=== PATIENT | female | born 1940 | race Caucasian/White ===

== ENCOUNTER 2017-06-13 09:51 | Outpatient (RCR) | payer MEDICARE, BC ==
[2016-01-10 16:52] VITALS: Ht 160 cm; Wt 68.9 kg
[2017-03-21 10:20] VITALS: BP 134/71
[2017-03-21 10:30] LABS: PLATELET COUNT, AUTOMATED 249 K/uL (150-450)
[2017-04-04 10:19] VITALS: BP 115/73
[2017-04-04 10:23] LABS: PLATELET COUNT, AUTOMATED 273 K/uL (150-450)
[2017-04-04 12:34] VITALS: BP 119/68
--- NOTE | 2017-04-04 20:08 | ONCOLOGY FOLLOW UP NOTE ---
EVENT DATE: April 04, 2017 REASON FOR FOLLOWUP Anemia of chronic disease, likely early myelodysplasia. INTERIM HISTORY Domitila returns to clinic for a follow-up visit today. She is accompanied by her . Since our last visit, in general she has been feeling about the same. Unfortunately, she reports that both she and her were diagnosed with influenza recently. The syndrome itself was fairly short, lasting only a few days. She feels that she has again reached her usual baseline of fatigue. The fatigue itself has been ongoing and chronic, but has not worsened. [facility], but when she came down with the flu, she stopped going, and she has not yet returned. She reports some ongoing aches and pains, as well as shortness of breath. She remains on a stable supplemental oxygen flow. Her appetite has again picked up after her illness, and she tends to eat quite well. She does tend to get up to use the bathroom several times at night, but she gets right back to sleep afterward. She does tend to sleep fairly long hours. REVIEW OF SYSTEMS Otherwise negative, and all systems were reviewed. PAST MEDICAL HISTORY 1. Suspected myelodysplasia with chronic normocytic anemia. 2. COPD on supplemental oxygen. 3. Hypertension. 4. Hypercholesterolemia. 5. Type 2 diabetes mellitus. 6. Hypothyroidism. 7. Anemia of chronic disease with inappropriately low erythropoietin. PAST SURGICAL HISTORY 1. Status post total abdominal hysterectomy in December 2015. 2. Status post femur pinning for fracture in July 2013. 3. History of neck fusion. 4. History of bilateral shoulder repair. 5. History of minor back surgery. CURRENT MEDICATIONS 1. Prednisone. 2. Levaquin. 3. Aspirin. 4. Albuterol. 5. Symbicort. 6. Vitamin D. 7. Levothyroxine. 8. Atorvastatin. 9. Albuterol. 10. Montelukast. 11. Quetiapine. 12. Carvedilol. 13. Trazodone. 14. Supplemental oxygen. ALLERGIES No known drug allergies. 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 She is . She is a former smoker, having smoked about a pack a day for 30 years. She quit in 2012. There is no history of alcohol abuse or illicit drug use. FAMILY HISTORY There is a family history of head and neck cancer in her son. VITAL SIGNS Temperature 97.1, blood pressure 118/68, heart rate is 78, respirations 16, oxygen saturation is 100% on supplemental oxygen. PHYSICAL EXAMINATION GENERAL: Patient is alert and oriented times three in no apparent distress sitting in the exam room chair. She is interactive and quite pleasant, but she does appear tired. She appears nontoxic. HEENT: Exam reveals anicteric sclerae. NEUROLOGIC: Exam is grossly nonfocal. Her gait is somewhat antalgic, but stable. EXTREMITIES: Exam reveals some modest edema of the lower extremities, but no cyanosis. . SKIN: Exam reveals no concerning rash or lesion. LABORATORY STUDIES Reviewed per the [facility] record. ASSESSMENT AND PLAN Chronic anemia, concern for myelodysplasia. I had a good visit with Domitila and her today. For the most part, she seems to be holding her own with ongoing Aranesp injections. She has not had a dramatic improvement in her hemoglobin, however. She is encouraged today by her hemoglobin improvement to 10.9 from 10.1. As discussed, I am not sure if this will be a trend. We did frankly discuss her ongoing fatigue, and with her chronic lung disease and anemia, as well as living at elevation, this fatigue is going to continue. She understands this. I have recommended that she continue with Aranesp injections for the time being, as she has done well with it. We will plan to meet again in three months' time, and we will monitor her labs in the meantime. I would be more than happy to see her sooner if there are questions or concerns. BIBI
[2017-04-18 10:40] VITALS: BP 151/72
[2017-05-02 09:57] VITALS: BP 117/83
[2017-05-16 10:32] VITALS: BP 127/83
[2017-05-30 10:06] VITALS: BP 124/77
[~2017-06-13] VITALS: Ht 160 cm; Wt 68.9 kg
[~2017-06-13 09:51] MED LIST: ALB0.5 INH; ALBU8.5H IH; ASPI-1471 PO; ASPI81TA94 PO; ATOR10TA65 PO; Albuterol Sulfate NEB; Amitriptyline Hcl PO; BUDE10.2 INH; CAR3.125 PO; CEPH250C37 PO; CEPH500T7 PO; CHOL100058 PO; CHOL400C10 PO; DARBEPOETIN ESRD 100 MCG/0.5ML SYR IVP PRN; DOXY-179 PO; DULERAPT INH; ERY250 PO; FLUO-201 PO; Fluoxetine Hcl PO; GUAI600T84 PO; Guaifenesin PO; HYDR-385 PO; HYDR-4309 PO; HYDR2TAB74 PO; IBUP200C74 PO; IRON18TA2 PO; LEV125 PO; LEVO-85 PO; LEVO100T95 PO; LOR5/325 PO; LOR75 PO; MONT10TA PO; MOX400 PO; MULT-912 PO; NAPR220C12 PO; OMEP-137 PO; OMEP20CA68 PO; ONDA4TAB PO; OXYC-869 PO; OXYGEN INH; PRE10 PO; PRE20 PO; PRED-1 PO; PRED20TA6 PO; TRAZ-156 PO; VIT1CAPS33 PO; [UNRECOGNIZED DRUG - CODE] PO
[2017-06-13 10:03] VITALS: BP 126/67
[2017-06-13 11:02] VITALS: BP 126/67
--- NOTE | 2017-06-14 03:45 | ONCOLOGY FOLLOW UP NOTE ---
EVENT DATE: June 13, 2017 REASON FOR FOLLOWUP Anemia of chronic disease, likely early myelodysplasia. INTERIM HISTORY Domitila returns to clinic for a followup visit today. She is accompanied by her . Since our last visit, she has continued on Aranesp injections for her anemia/MDS. In addition, she has also started going to the gym, and for the most part while she is there, she rides the stationary bike. She tends to ride for about 15 minutes before she gets too tired. She is trying to stay on the bike for longer. She reports ongoing chronic aches and pains, especially of the hips and knees. This does limit her activity significantly. She remains on supplemental oxygen. She does get short of breath with exertion. She reports no fever. Cough has been occasional, and she has had no hemoptysis. For the most part, her appetite is pretty good, her weight has been stable. REVIEW OF SYSTEMS Otherwise negative, and all systems were reviewed. PAST MEDICAL HISTORY 1. Suspected myelodysplasia with chronic normocytic anemia. 2. COPD on supplemental oxygen. 3. Hypertension. 4. Hypercholesterolemia. 5. Type 2 diabetes mellitus. 6. Hypothyroidism. 7. Anemia of chronic disease with inappropriately low erythropoietin. PAST SURGICAL HISTORY 1. Status post total abdominal hysterectomy in December 2015. 2. Status post femur pinning for fracture in July 2013. 3. History of neck fusion. 4. History of bilateral shoulder repair. 5. History of minor back surgery. CURRENT MEDICATIONS 1. Prednisone. 2. Levaquin. 3. Aspirin. 4. Albuterol. 5. Symbicort. 6. Vitamin D. 7. Levothyroxine. 8. Atorvastatin. 9. Albuterol. 10. Montelukast. 11. Quetiapine. 12. Carvedilol. 13. Trazodone. 14. Supplemental oxygen. ALLERGIES No known drug allergies. 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 She is . She is a former smoker, having smoked about a pack a day for 30 years. She quit in 2012. There is no history of alcohol abuse or illicit drug use. FAMILY HISTORY There is a family history of head and neck cancer in her son. VITAL SIGNS Temperature 98.3, blood pressure 126/67, heart rate is 73, respirations 16, oxygen saturation is 98% on 6 L. Weight is 68.9 kg. PHYSICAL EXAMINATION GENERAL: Patient is alert and oriented x 3 in no apparent distress sitting in the exam room chair. She is wearing oxygen by nasal cannula. HEENT: Exam reveals anicteric sclerae. NEUROLOGIC: Exam is grossly nonfocal, although her gait is antalgic and slow. EXTREMITIES: Exam reveals some slight edema of the bilateral lower extremities. SKIN: Exam reveals no concerning rash or lesion. LABORATORY STUDIES Reviewed per the [email or web address] record. ASSESSMENT AND PLAN Chronic anemia, concern for myelodysplasia. The patient seems to be doing a bit better symptomatically. Her fatigue has improved, and she is now getting more physical activity, actually going to the gym twice a week. This has brought an overall slightly better quality of life, and she plans to continue going to the gym. We spent time reviewing her labs today. Most recently at the time I saw her at my [facility], her hemoglobin had improved to 10.9. It has now improved to 12.2. This possibly accounts for why she feels a bit better. We also discussed that I would not want for her hemoglobin to go any higher, due to risk. We we will be sure that parameters for her ongoing injections will reflect this concern. For the time being, I would have her continue with her injections if her hemoglobin is less than 12. If her hemoglobin climbs higher, we may need to change this parameter to a hemoglobin of 11. The patient understands these recommendations, and we will continue with her treatment per protocol. I will plan to see her back in three months, or sooner if there are questions or concerns. BIBI
== END 2017-06-18 ==
LOC: SPU 09:51
PROVIDERS: ATTEND Internal Medicine Hematology
DX: D64.9 Anemia, unspecified (principal); R53.83 Other fatigue; R06.02 Shortness of breath; Z87.891 Personal history of nicotine dependence
CPT/HCPCS: 36415; 85025; 85027; 96374; G0463; J0882; 99212

== ENCOUNTER 2017-08-24 19:33 | Emergency (ER) | payer MEDICARE, BC ==
[2016-01-10 16:52] VITALS: Wt 68.0 kg
[~2017-08-24 19:33] MED LIST changes: -CEF300 PO; -IPRA3AMP10 IH; +TRAZ-156 PO; -TRAZ50TA34 PO
[2017-08-24] MEDS ORDERED: ALBUTEROL/IPRATROPIUM 3 ML NEB NEB ONE (19:45)
[2017-08-24] MEDS ORDERED: methylPREDNIS SUCC 125 MG/2ML IVP ONE (19:45)
--- NOTE | 2017-08-24 19:47 | ER Report ---
History and Physical Time Seen By MD: 19:38 HPI/ROS CHIEF COMPLAINT: Shortness of breath HISTORY OF PRESENT ILLNESS: 76-year-old female patient presents to emergency room with complaint of shortness of breath. Patient states she's been feeling short of breath for the past week. She go see her primary care provider on . At that time she was found to have an SPO2 of 73%. He states that she is unable to get her oxygen up that she is in the ER. Patient states she is able to get her oxygen up to 94% and keep it up. She states that last night she woke up and did not have her oxygen on. She states she is not able to catch her breath. She is unable to wake up her and ended up using her lifeline. EMS arrived and was able to get her back on oxygen. She seemed to get slightly better. She denies having any chest pain, nausea, vomiting or diarrhea. Patient has continued to take her normal medications. Patient also denies having any fevers or chills. REVIEW OF SYSTEMS: Respiratory: As noted above Cardiovascular: No chest pain, no palpitations. Gastrointestinal: No vomiting, no abdominal pain. Musculoskeletal: No back pain. Allergies: Coded Allergies: No Known Drug Allergies (Verified , 08/24/17) Home Meds Active Scripts Trazodone Hcl (TRAZODONE HCL) 50 Mg Tablet, 50 MG PO QHS for insomnia, #30 Prov:CANDE LAMAR MD 06/10/13 Reported Medications Vit C/Vit E/Lutein/Min/[place]-3 (OCUVITE SOFTGEL) 1 Each Capsule, 1 EACH PO DAILY , CAPSULE 03/21/17 Naproxen Sodium (ALEVE) 220 Mg Capsule, 220 MG PO TID Y for PAIN, CAPSULE 03/21/17 Guaifenesin (Guaifenesin ER) 600 Mg Tab.er.12h, 1 TAB PO DAILY 11/07/16 Carvedilol (CARVEDILOL) 3.125 Mg Tab, 3.125 MG PO DAILY, TAB 11/07/16 Aspirin (ASPIR 81) 81 Mg Tablet.dr, 81 MG PO QDAY, TAB 04/21/15 Cholecalciferol (Vitamin D3) (VITAMIN D) 400 Unit Capsule, 400 UNIT PO QDAY, CAPSULE 04/08/15 Levothyroxine Sodium (LEVOTHYROXINE SODIUM) 0.125 Mg Tab, 0.125 MG PO QDAY, TAB 06/02/14 Atorvastatin Calcium (ATORVASTATIN CALCIUM) 10 Mg Tablet, 1 TAB PO HS, TAB 06/02/14 Albuterol Sulfate 90 Mcg/Act (PROAIR HFA 90 MCG/ACT) 8.5 Gm Hfa.aer.ad, 1-2 PUFF IH QID Y for WHEEZING 06/02/14 Albuterol Sulfate (Albuterol Inh Conc) 2.5 Mg/0.5 Ml Nebu, 2 PUFF INH PRN, 0 Refills DILUTE BEFORE USING 09/11/10 Oxygen (Oxygen) 2 L Inha, 4 L INH QHS, 0 Refills 09/11/10 Past Medical/Surgical History Patient has a past medical history of tachycardia, hypertension, hyperlipidemia , emphysema, pneumonia, COPD, reflux, cholecystitis, arthritis, pelvic fracture , hip fracture, femur fracture, back pain, hypothyroidism, alcohol use, anxiety. Patient has a surgical history of cataract surgery, tonsillectomy, rotator cuff surgery, left hip replacement 4, bilateral shoulder surgery, neck fusion, tubal ligation, hysterectomy, cholecystectomy, appendectomy. Reviewed Nurses Notes: Yes Hx Smoking: Yes (QUIT 2011, SMOKED 1 PPD X 50+ YRS) Smoking Status: Former Smoker Exposure to Second Hand Smoke?: Yes Hx Substance Use Disorder: No Hx Alcohol Use: Yes Constitutional Vital Sign - Last 24 Hours 08/24/17 08/24/17 08/24/17 08/24/17 19:38 19:40 19:48 20:00 Temp 99.2 Pulse 102 78 Resp 20 28 B/P (MAP) 153/98 153/98 (116) 130/82 (98) Pulse Ox 80 98 O2 Delivery Nasal Cannula 08/24/17 08/24/17 08/24/17 08/24/17 20:03 20:04 20:06 20:06 Pulse 77 75 Resp 28 18 Pulse Ox 96 96 O2 Delivery Nasal Cannula O2 Flow Rate 4.0 5.0 Physical Exam General Appearance: The patient is alert, has no immediate need for airway protection and no current signs of toxicity. Respiratory: Chest is non tender, lungs are diminished throughout to auscultation. Cardiac: regular rate and rhythm Gastrointestinal: Abdomen is soft and non tender, no masses, bowel sounds normal. Musculoskeletal: Neck: Neck is supple and non tender. Extremities have full range of motion and are non tender. Skin: No rashes or lesions. DIFFERENTIAL DIAGNOSIS: After history and physical exam differential diagnosis was considered for shortness of breath including but not limited to pulmonary infectious process, COPD, asthma, pulmonary embolus and congestive heart failure. Medical Decision Making Data Points Result Diagram: 08/24/17195408/24/171954 Laboratory Hematology Test 08/24/17 19:55 Red Blood Count 3.69 M/uL (4.17-5.56) Mean Corpuscular Volume 91.1 fL (80.0-96.0) Mean Corpuscular Hemoglobin 30.2 pg (26.0-33.0) Mean Corpuscular Hemoglobin Concent 33.2 g/dL (32.0-36.0) Red Cell Distribution Width 14.7 % (11.5-14.5) Mean Platelet Volume 7.5 fL (7.2-11.1) Neutrophils (%) (Auto) 70.1 % (39.4-72.5) Lymphocytes (%) (Auto) 15.2 % (17.6-49.6) Monocytes (%) (Auto) 12.0 % (4.1-12.4) Eosinophils (%) (Auto) 2.5 % (0.4-6.7) Basophils (%) (Auto) 0.2 % (0.3-1.4) Nucleated RBC Relative Count (auto) 0.0 /100WBC Neutrophils # (Auto) 3.9 K/uL (2.0-7.4) Lymphocytes # (Auto) 0.8 K/uL (1.3-3.6) Monocytes # (Auto) 0.7 K/uL (0.3-1.0) Eosinophils # (Auto) 0.1 K/uL (0.0-0.5) Basophils # (Auto) 0.0 K/uL (0.0-0.1) Nucleated RBC Absolute Count (auto) 0.00 K/uL Sodium Level 137 mmol/L (137-145) Potassium Level 2.7 mmol/L (3.5-5.0) Chloride Level 84 mmol/L (98-107) Carbon Dioxide Level 44 mmol/L (22-31) Blood Urea Nitrogen 16 mg/dl (7-18) Creatinine 0.90 mg/dl (0.52-1.04) Glomerular Filtration Rate Calc > 60.0 Random Glucose 143 mg/dl (75-110) Calcium Level 9.0 mg/dl (8.4-10.2) Total Bilirubin 0.2 mg/dl (0.2-1.3) Aspartate Amino Transf (AST/SGOT) 137 U/L (0-35) Alanine Aminotransferase (ALT/SGPT) 191 U/L (0-56) Alkaline Phosphatase 138 U/L (0-126) Troponin I 0.259 ng/ml B-Type Natriuretic Peptide 198 pg/ml (0-100) Total Protein 6.4 gm/dl (6.3-8.2) Albumin 3.4 g/dl (3.5-5.0) Chemistry Test 08/24/17 19:55 White Blood Count 5.5 k/uL (4.5-11.0) Red Blood Count 3.69 M/uL (4.17-5.56) Hemoglobin 11.2 g/dL (12.0-16.0) Hematocrit 33.7 % (34.0-47.0) Mean Corpuscular Volume 91.1 fL (80.0-96.0) Mean Corpuscular Hemoglobin 30.2 pg (26.0-33.0) Mean Corpuscular Hemoglobin Concent 33.2 g/dL (32.0-36.0) Red Cell Distribution Width 14.7 % (11.5-14.5) Platelet Count 221 K/uL (150-450) Mean Platelet Volume 7.5 fL (7.2-11.1) Neutrophils (%) (Auto) 70.1 % (39.4-72.5) Lymphocytes (%) (Auto) 15.2 % (17.6-49.6) Monocytes (%) (Auto) 12.0 % (4.1-12.4) Eosinophils (%) (Auto) 2.5 % (0.4-6.7) Basophils (%) (Auto) 0.2 % (0.3-1.4) Nucleated RBC Relative Count (auto) 0.0 /100WBC Neutrophils # (Auto) 3.9 K/uL (2.0-7.4) Lymphocytes # (Auto) 0.8 K/uL (1.3-3.6) Monocytes # (Auto) 0.7 K/uL (0.3-1.0) Eosinophils # (Auto) 0.1 K/uL (0.0-0.5) Basophils # (Auto) 0.0 K/uL (0.0-0.1) Nucleated RBC Absolute Count (auto) 0.00 K/uL Glomerular Filtration Rate Calc > 60.0 Calcium Level 9.0 mg/dl (8.4-10.2) Total Bilirubin 0.2 mg/dl (0.2-1.3) Aspartate Amino Transf (AST/SGOT) 137 U/L (0-35) Alanine Aminotransferase (ALT/SGPT) 191 U/L (0-56) Alkaline Phosphatase 138 U/L (0-126) Troponin I 0.259 ng/ml B-Type Natriuretic Peptide 198 pg/ml (0-100) Total Protein 6.4 gm/dl (6.3-8.2) Albumin 3.4 g/dl (3.5-5.0) EKG/Imaging EKG Interpretation 12 lead EKG: Rhythm: normal sinus rhythm [place]: normal QRS: Short CO interval ST segments: Patient does have some flattened T waves, inverted T waves when compared with EKG from 09/25/2016 Imaging EXAMINATION: Chest radiographs 2 views HISTORY: Respiratory distress. COMPARISON: 01/09/2016. FINDINGS: PA and lateral views of the chest are submitted. Lines/tubes: None. Lungs/pleura: No focal consolidation or pleural effusion. Heart: Negative. Mediastinum: Atherosclerotic calcifications of the aorta. Bony structures/body wall: Fusion hardware in the lower cervical spine with fracture of the inferior most left-sided screw, unchanged. Soft tissue anchor in the right humeral head. IMPRESSION: No radiographic evidence of acute cardiopulmonary disease. Report Dictated By: Deyanira Cooper MD at 08/24/2017 8:31 PM Report E-Signed By: Deyanira Cooper MD at 08/24/2017 8:33 PM ED Course/Re-evaluation ED Course Patient was admitted in exam room, history of physical or obtained. Differential diagnoses were considered. On examination patient has incredibly diminished lung sounds throughout. She has pursed lips breathing and is tripoding. An IV was started, a CBC, CMP, troponin, EKG, chest x-ray, BNP were done. Patient received 125 mg Solu-Medrol as well as DuoNeb. EKG showed sinus rhythm with short CO, she does have some flattening of T waves, no other acute findings. CBC showed no elevated white count, CMP showed a critically low potassium of 2.7, CO2 of 44. Troponin came back at 0.259, BNP was 189. Chest x- ray showed no acute cardiopulmonary processes. I did discuss the case with Dr. Amor, nursing educator at [facility]. He felt that the patient was having a COPD exacerbation and that the troponin was secondary to heart strain. He recommended talking with her hospitalist. Have her hospitalist felt comfortable managing this can go ahead and manage this here in [place], otherwise a be more than happy to accept that he would have a time with hospitals. I did speak with Dr. Danette Cheema, hospitalist, she felt that with the troponin being elevated and no previous history of heart disease that the patient would be best suited going to [facility]. I did call and speak with Dr. Nielsen, hospitalist at [facility], she did agree to accept the patient for transfer. I discussed this with the patient and verbalized understanding and agreement with plan. Decision to Disposition Date: Aug 24, 2017 Decision to Disposition Time: 21:36 Depart Departure Latest Vital Signs Vital Signs Date Time Temp Pulse Resp B/P (MAP) Pulse Ox O2 Delivery O2 Flow Rate FiO2 08/24/17 20:06 75 18 08/24/17 20:06 96 Nasal Cannula 5.0 08/24/17 20:00 130/82 (98) 08/24/17 19:38 99.2 Impression: Primary Impression: COPD with acute exacerbation Additional Impressions: Elevated troponin Hypokalemia Condition: Condition Unchanged Disposition: XFER TO ACUTE CARE HOSPITAL Referrals: ALBERT SANCHEZ MD (PCP) Problem Qualifiers SUKHWINDER BERMEO Aug 24, 2017 19:46
[2017-08-24 20:15] LABS: PLATELET COUNT, AUTOMATED 221 K/uL (150-450)
[2017-08-24] MEDS ORDERED: ASPIRIN 81 MG CHEW PO ONE (20:30)
--- NOTE | 2017-08-24 20:35 | EKG ---
[place] [facility] [place] NAME[place] ALEKSANDR BARON : [id number] MR: [id number] V: [id number] EXAM DATE: ORDERING PHYSICIAN: SUKHWINDER BERMEO TECHNOLOGIST: JENNA Test Reason : SOB Blood Pressure : / mmHG Vent. Rate : 077 BPM Atrial Rate : 077 BPM P-R Int : 090 ms QRS Dur : 082 ms QT Int : 386 ms P-R-T Axes : -13 044 073 degrees QTc Int : 436 ms Junctional rhythm Otherwise normal ECG No previous ECGs available Confirmed by ALETA TORRES ([id number]) on 08/25/2017 6:35:26 AM Referred By: JEAN-CLAUDE Confirmed By:ALETA TORRES
--- NOTE | 2017-08-24 20:37 | RADIOLOGY IMAGING REPORT ---
FACILITY: [facility] PATIENT NAME: Domitila Vera : 1940 MR: [id number] V: [id number] EXAM DATE: ORDERING PHYSICIAN: SUKHWINDER BERMEO TECHNOLOGIST: Location: [facility] [place] Patient: Domitila Vera : 1940 Visit/Account:[id number] Date of Sevice: 08/24/2017 EXAMINATION: Chest radiographs 2 views HISTORY: Respiratory distress. COMPARISON: 01/09/2016. FINDINGS: PA and lateral views of the chest are submitted. Lines/tubes: None. Lungs/pleura: No focal consolidation or pleural effusion. Heart: Negative. Mediastinum: Atherosclerotic calcifications of the aorta. Bony structures/body wall: Fusion hardware in the lower cervical spine with fracture of the inferior most left-sided screw, unchanged. Soft tissue anchor in the right humeral head. IMPRESSION: No radiographic evidence of acute cardiopulmonary disease. Report Dictated By: Deyanira Cooper MD at 08/24/2017 8:31 PM Report E-Signed By: Deyanira Cooper MD at 08/24/2017 8:33 PM WSN:[id number]
[2017-08-24] MEDS ORDERED: KCL (*) 20 MEQ/100 ML PREMIX 100 ML IV ONE (20:50)
[2017-08-24] MEDS ORDERED: NS(*) 0.9% 1000 ML BAG 1,000 ML IV ONE (20:55)
[2017-08-24 22:00] VITALS: BP 116/86
== END 2017-08-24 22:22 | disposition short-term general hospital (02) ==
LOC: ER 20:04
DX: J44.1 Chronic obstructive pulmonary disease with (acute) exacerbation (principal); R79.89 Other specified abnormal findings of blood chemistry; E87.6 Hypokalemia; Z99.81 Dependence on supplemental oxygen; Z87.891 Personal history of nicotine dependence
CPT/HCPCS: 71046; 83880; 84484; 85025; 93005; 94640; 96365; 96375; 99285; A9270; J2930; J3480; J7030; J7620; 82040; 82247; 82310; 82374; 82435; 82565; 82947; 84075; 84132; 84155; 84295; 84450; 84460; 84520

== ENCOUNTER → 2017-08-24 | Outpatient (CLI) | payer MEDICARE, BC ==
[2016-01-10 16:52] VITALS: BMI 25.4
[~2017-08-24] MED LIST changes: +CEF300 PO; -DARBEPOETIN ESRD 100 MCG/0.5ML SYR IVP PRN; +IPRA3AMP10 IH; -TRAZ-156 PO; +TRAZ50TA34 PO
== END ==
LOC: AMB 22:01
PROVIDERS: ATTEND Nurse Practitioner
DX: R06.02 Shortness of breath (principal); R79.89 Other specified abnormal findings of blood chemistry; I21.4 Non-ST elevation (NSTEMI) myocardial infarction
CPT/HCPCS: A0425; A0426

== ENCOUNTER 2017-09-08 20:46 | Inpatient (IN) | payer MEDICARE, BC ==
[2016-01-10 16:52] VITALS: Ht 160 cm; Wt 67.3 kg
[~2017-09-08] VITALS: Ht 160 cm; Wt 67.3 kg
[~2017-09-08 20:46] MED LIST changes: -CEF300 PO
[2017-09-08] MEDS ORDERED: NS(*) 0.9% 1000 ML BAG 1,000 ML IV ONE (20:54)
--- NOTE | 2017-09-08 20:54 | ER Report ---
History and Physical Time Seen By MD: 20:53 Hx. of Stated Complaint: PATIENT STARTED HAVING TROUBLE BREATHING YESTERDAY; TODAY IT HAS GOTTEN WORSE TO WHERE SHE COULDNT BREATH HPI/ROS CHIEF COMPLAINT: Difficulty breathing HISTORY OF PRESENT ILLNESS: 76-year-old female with a history of COPD on O2 at 5 L baseline. Patient was transferred here approximately 3 weeks ago with an elevated troponin, difficulty breathing. She states that the the glassie is giving her pills for medical management. She's been having shortness of breath for several days. She presents with a fever 101.7. She's had a productive cough of colored sputum. Patient's had no chest pain. She's been sick for 3 days with URI symptoms and now severe shortness of breath for 1 day. He notes chest congestion. She's had no leg swelling. REVIEW OF SYSTEMS: Respiratory: As above Cardiovascular: No chest pain, no palpitations. Gastrointestinal: No vomiting, no abdominal pain. Musculoskeletal: No back pain. Allergies: Coded Allergies: No Known Drug Allergies (Verified , 09/08/17) Home Meds Active Scripts Cefdinir 300 Mg Cap (OMNICEF 300 MG CAP (OR EQUIV)) 300 Mg Cap, 300 MG PO BID, # 10 CAP Prov:ALBERT IBANEZ DO 09/09/17 Prednisone (PREDNISONE) 20 Mg Tablet, 20 MG PO QDAY, #3 TAB Prov:ALBERT IBANEZ DO 09/09/17 Trazodone Hcl (TRAZODONE HCL) 50 Mg Tablet, 50 MG PO QHS for insomnia, #30 Prov:CANDE LAMAR MD 06/10/13 Reported Medications Vit C/Vit E/Lutein/Min/[place]-3 (OCUVITE SOFTGEL) 1 Each Capsule, 1 EACH PO DAILY , CAPSULE 03/21/17 Naproxen Sodium (ALEVE) 220 Mg Capsule, 220 MG PO TID Y for PAIN, CAPSULE 03/21/17 Guaifenesin (Guaifenesin ER) 600 Mg Tab.er.12h, 1 TAB PO DAILY 11/07/16 Carvedilol (CARVEDILOL) 3.125 Mg Tab, 3.125 MG PO DAILY, TAB 11/07/16 Aspirin (ASPIR 81) 81 Mg Tablet.dr, 81 MG PO QDAY, TAB 04/21/15 Cholecalciferol (Vitamin D3) (VITAMIN D) 400 Unit Capsule, 400 UNIT PO QDAY, CAPSULE 04/08/15 Levothyroxine Sodium (LEVOTHYROXINE SODIUM) 0.125 Mg Tab, 0.125 MG PO QDAY, TAB 06/02/14 Atorvastatin Calcium (ATORVASTATIN CALCIUM) 10 Mg Tablet, 1 TAB PO HS, TAB 06/02/14 Albuterol Sulfate 90 Mcg/Act (PROAIR HFA 90 MCG/ACT) 8.5 Gm Hfa.aer.ad, 1-2 PUFF IH QID Y for WHEEZING 06/02/14 Albuterol Sulfate (Albuterol Inh Conc) 2.5 Mg/0.5 Ml Nebu, 2 PUFF INH PRN, 0 Refills DILUTE BEFORE USING 09/11/10 Oxygen (Oxygen) 2 L Inha, 4 L INH QHS, 0 Refills 09/11/10 Past Medical/Surgical History COPD, recent non-STEMI Reviewed Nurses Notes: Yes Old Medical Records Reviewed: Yes Hx Smoking: Yes (QUIT 2011, SMOKED 1 PPD X 50+ YRS) Smoking Status: Former Smoker Exposure to Second Hand Smoke?: Yes Hx Substance Use Disorder: No Hx Alcohol Use: Yes Constitutional Vital Sign - Last 24 Hours 09/08/17 09/08/17 09/08/17 09/08/17 20:47 20:52 21:00 21:11 Temp 101.7 Pulse 101 94 Resp 24 11 B/P (MAP) 117/85 130/72 (91) Pulse Ox 92 98 97 O2 Delivery Nasal Cannula Nasal Cannula O2 Flow Rate 4.0 6.0 09/08/17 09/08/17 09/08/17 09/08/17 21:12 21:15 21:30 21:45 Pulse 92 92 95 95 Resp 20 25 20 26 B/P (MAP) 149/139 (142) Pulse Ox 97 97 09/08/17 09/08/17 09/08/17 22:00 22:15 22:45 Pulse 93 89 86 Resp 29 23 30 Pulse Ox 95 Physical Exam Vital signs stable, afebrile, pulse ox requiring 6 L to get saturations in the low 90s. General Appearance: The patient is alert, has no immediate need for airway protection a, faint extra [place], wheezing, no rales at nd no current signs of toxicity. [ ] Eyes: Pupils equal and round no injection. TMs normal, oropharynx with mild erythema, no exudate Respiratory: Chest is non tender, decreased breath sounds bilaterally Cardiac: regular rate and rhythm Gastrointestinal: Abdomen is soft and non tender, no masses, bowel sounds normal. Musculoskeletal: Neck: Neck is supple and non tender. Extremities have full range of motion and are non tender. No edema, no calf tenderness Skin: No rashes or lesions. DIFFERENTIAL DIAGNOSIS: After history and physical exam differential diagnosis was considered for shortness of breath including but not limited to pulmonary infectious process, COPD, asthma, pulmonary embolus and congestive heart failure. Medical Decision Making Data Points Result Diagram: 09/08/17 2030 09/08/172029 Laboratory Hematology Test 09/08/17 20:30 09/08/17 21:06 09/08/17 23:18 Red Blood Count 4.15 M/uL (4.17-5.56) Mean Corpuscular Volume 91.9 fL (80.0-96.0) Mean Corpuscular Hemoglobin 29.7 pg (26.0-33.0) Mean Corpuscular Hemoglobin Concent 32.3 g/dL (32.0-36.0) Red Cell Distribution Width 16.4 % (11.5-14.5) Mean Platelet Volume 7.7 fL (7.2-11.1) Neutrophils (%) (Auto) 73.2 % (39.4-72.5) Lymphocytes (%) (Auto) 13.4 % (17.6-49.6) Monocytes (%) (Auto) 9.0 % (4.1-12.4) Eosinophils (%) (Auto) 2.5 % (0.4-6.7) Basophils (%) (Auto) 1.9 % (0.3-1.4) Nucleated RBC Relative Count (auto) 0.0 /100WBC Neutrophils # (Auto) 4.3 K/uL (2.0-7.4) Lymphocytes # (Auto) 0.8 K/uL (1.3-3.6) Monocytes # (Auto) 0.5 K/uL (0.3-1.0) Eosinophils # (Auto) 0.1 K/uL (0.0-0.5) Basophils # (Auto) 0.1 K/uL (0.0-0.1) Nucleated RBC Absolute Count (auto) 0.00 K/uL D-Dimer Quantitative (PE/DVT) 1.05 ug/ml (0-0.50) Sodium Level 140 mmol/L (137-145) Potassium Level 3.3 mmol/L (3.5-5.0) Chloride Level 85 mmol/L (98-107) Carbon Dioxide Level 46 mmol/L (22-31) Blood Urea Nitrogen 16 mg/dl (7-18) Creatinine 0.80 mg/dl (0.52-1.04) Glomerular Filtration Rate Calc > 60.0 Random Glucose 104 mg/dl (75-110) Calcium Level 9.1 mg/dl (8.4-10.2) Total Bilirubin 0.5 mg/dl (0.2-1.3) Aspartate Amino Transf (AST/SGOT) 23 U/L (0-35) Alanine Aminotransferase (ALT/SGPT) 32 U/L (0-56) Alkaline Phosphatase 77 U/L (0-126) Troponin I < 0.012 ng/ml B-Type Natriuretic Peptide 15 pg/ml (0-100) Total Protein 6.5 g/dl (6.3-8.2) Albumin 3.4 g/dl (3.5-5.0) Lactate 1.2 mmol/L (0.7-2.1) Urine Color Yellow Urine Clarity Slightly-cloudy Urine pH 7.0 pH (4.8-9.5) Urine Specific [place] 1.036 Urine Protein Negative mg/dL (NEGATIVE) Urine Glucose (UA) Negative mg/dL (NEGATIVE) Urine Ketones Negative mg/dL (NEGATIVE) Urine Blood Negative (NEGATIVE) Urine Nitrite Negative (NEGATIVE) Urine Bilirubin Negative (NEGATIVE) Urine Urobilinogen 2.0 mg/dL (0.2-1.9) Urine Leukocyte Esterase Negative (NEGATIVE) Urine RBC 6 /HPF (0-2/HPF) Urine WBC 1 /HPF (0-5/HPF) Urine Squamous Epithelial Cells Few /LPF (</=FEW) Urine Transitional Epithelial Cells Few /LPF (NONE-FEW) Urine Amorphous Crystals Few /HPF Urine Bacteria Negative /HPF (NONE-FEW) Urine Mucus None /HPF (NONE-FEW) Chemistry Test 09/08/17 20:30 09/08/17 21:06 09/08/17 23:18 White Blood Count 5.9 k/uL (4.5-11.0) Red Blood Count 4.15 M/uL (4.17-5.56) Hemoglobin 12.3 g/dL (12.0-16.0) Hematocrit 38.1 % (34.0-47.0) Mean Corpuscular Volume 91.9 fL (80.0-96.0) Mean Corpuscular Hemoglobin 29.7 pg (26.0-33.0) Mean Corpuscular Hemoglobin Concent 32.3 g/dL (32.0-36.0) Red Cell Distribution Width 16.4 % (11.5-14.5) Platelet Count 301 K/uL (150-450) Mean Platelet Volume 7.7 fL (7.2-11.1) Neutrophils (%) (Auto) 73.2 % (39.4-72.5) Lymphocytes (%) (Auto) 13.4 % (17.6-49.6) Monocytes (%) (Auto) 9.0 % (4.1-12.4) Eosinophils (%) (Auto) 2.5 % (0.4-6.7) Basophils (%) (Auto) 1.9 % (0.3-1.4) Nucleated RBC Relative Count (auto) 0.0 /100WBC Neutrophils # (Auto) 4.3 K/uL (2.0-7.4) Lymphocytes # (Auto) 0.8 K/uL (1.3-3.6) Monocytes # (Auto) 0.5 K/uL (0.3-1.0) Eosinophils # (Auto) 0.1 K/uL (0.0-0.5) Basophils # (Auto) 0.1 K/uL (0.0-0.1) Nucleated RBC Absolute Count (auto) 0.00 K/uL D-Dimer Quantitative (PE/DVT) 1.05 ug/ml (0-0.50) Glomerular Filtration Rate Calc > 60.0 Calcium Level 9.1 mg/dl (8.4-10.2) Total Bilirubin 0.5 mg/dl (0.2-1.3) Aspartate Amino Transf (AST/SGOT) 23 U/L (0-35) Alanine Aminotransferase (ALT/SGPT) 32 U/L (0-56) Alkaline Phosphatase 77 U/L (0-126) Troponin I < 0.012 ng/ml B-Type Natriuretic Peptide 15 pg/ml (0-100) Total Protein 6.5 g/dl (6.3-8.2) Albumin 3.4 g/dl (3.5-5.0) Lactate 1.2 mmol/L (0.7-2.1) Urine Color Yellow Urine Clarity Slightly-cloudy Urine pH 7.0 pH (4.8-9.5) Urine Specific [place] 1.036 Urine Protein Negative mg/dL (NEGATIVE) Urine Glucose (UA) Negative mg/dL (NEGATIVE) Urine Ketones Negative mg/dL (NEGATIVE) Urine Blood Negative (NEGATIVE) Urine Nitrite Negative (NEGATIVE) Urine Bilirubin Negative (NEGATIVE) Urine Urobilinogen 2.0 mg/dL (0.2-1.9) Urine Leukocyte Esterase Negative (NEGATIVE) Urine RBC 6 /HPF (0-2/HPF) Urine WBC 1 /HPF (0-5/HPF) Urine Squamous Epithelial Cells Few /LPF (</=FEW) Urine Transitional Epithelial Cells Few /LPF (NONE-FEW) Urine Amorphous Crystals Few /HPF Urine Bacteria Negative /HPF (NONE-FEW) Urine Mucus None /HPF (NONE-FEW) Coagulation Test 09/08/17 20:30 D-Dimer Quantitative (PE/DVT) 1.05 ug/ml Urinalysis Test 09/08/17 23:18 Urine Color Yellow Urine Clarity Slightly-cloudy Urine pH 7.0 pH (4.8-9.5) Urine Specific [place] 1.036 Urine Protein Negative mg/dL (NEGATIVE) Urine Glucose (UA) Negative mg/dL (NEGATIVE) Urine Ketones Negative mg/dL (NEGATIVE) Urine Blood Negative (NEGATIVE) Urine Nitrite Negative (NEGATIVE) Urine Bilirubin Negative (NEGATIVE) Urine Urobilinogen 2.0 mg/dL (0.2-1.9) Urine Leukocyte Esterase Negative (NEGATIVE) Urine RBC 6 /HPF (0-2/HPF) Urine WBC 1 /HPF (0-5/HPF) Urine Squamous Epithelial Cells Few /LPF (</=FEW) Urine Transitional Epithelial Cells Few /LPF (NONE-FEW) Urine Amorphous Crystals Few /HPF Urine Bacteria Negative /HPF (NONE-FEW) Urine Mucus None /HPF (NONE-FEW) Microbiology Microbiology Date/Time Source Procedure Growth Status 09/08/17 21:20 Blood Peripheral Draw Blood Culture - Preliminary NO GROWTH AFTER 1 DAY, REINCUBATED Resulted 6/16/18 21:06 Blood Peripheral Draw Blood Culture - Preliminary NO GROWTH AFTER 1 DAY, REINCUBATED Resulted EKG/Imaging EKG Interpretation 12 lead EK Rhythm: normal sinus rhythm [place]: normal QRS: normal ST segments: normal, no evidence of ischemia or dysrhythmia Imaging Results: CT scan of the CTA pulmonary angiogram or angiogram was obtained. The results of the study are CT angiogram of the chest: Indication: Hypoxia and fever. Technique: Helical CT was performed through the chest following IV contrast enhancement with 75 cc of Isovue 370. Multiplanar reconstructions and MIP images are reviewed. One of the following dose optimization techniques was utilized in the performance of this exam: Automated exposure control; adjustment of the mA and/ or kV according to the patient's size; or use of an iterative reconstruction technique. Specific details can be referenced in the facility's radiology CT exam operational policy. Comparison: 04/01/2014 Pulmonary arteries: There is uniform contrast enhancement. There are no signs of pulmonary emboli. Aorta and great vessels: There is mild atherosclerotic calcification in the aortic arch and proximal great vessels, without significant change. There is uniform contrast enhancement. There are no signs of dissection or aneurysm. Heart and pericardial soft tissues: There is moderate atherosclerotic calcification in the left coronary arteries. The heart size is normal. No pericardial effusion is identified. Mediastinal soft tissues: Unremarkable. Lung silva: There are chronic emphysematous changes. No acute process or focal parenchymal abnormality is identified. Pleural spaces: No evidence of effusion, focal pleural thickening, or pneumothorax. Skeletal structures: There are chronic degenerative changes in the thoracic spine. No acute skeletal deformity is identified. Upper abdomen: Unremarkable, as visualized. IMPRESSION: No evidence of pulmonary emboli. No acute parenchymal or pleural process is identified. The study was read by the radiologist. I viewed the images myself on the PACS system. ED Course/Re-evaluation ED Course Patient was admitted to an examination room. H&P was done. The differential diagnoses was considered. Patient's presenting with shortness of breath for 1 day. She's been having upper respiratory symptoms for 3 days. She has a fever today. On arrival. She used to home nebs without improvement. Her white blood cell count not elevated, but she has myelodysplasia. She has chronic anemia. Please see oncology note dated 08/29/17. Patient was seen here on 08/24 and transferred to [facility] with an elevated troponin. Patient's white blood cell count is normal, without left shift. Her lactate is not elevated. Troponin is unremarkable. Her EKG shows no evidence of ischemia. Her d-dimer was elevated. A chest x-ray was canceled. A CT pulmonary angiogram was performed to rule out pulmonary embolism and rule out infiltrates and pneumonia. She is requiring 6 L of O2 to keep her saturations in the normal range. She's given Solu-Medrol 125 mg and DuoNeb here in the emergency department. She is resting comfortably to this. She gets up to go to the bathroom. She has severe dyspnea with exertion. On ambulation to the bathroom. Her urinalysis was unremarkable 09/08/2017 11:41:58 pm case was discussed with Dr. Schneider Decision to Disposition Date: Sep 08, 2017 Decision to Disposition Time: 23:39 Depart Departure Latest Vital Signs Vital Signs Date Time Temp Pulse Resp B/P (MAP) Pulse Ox O2 Delivery O2 Flow Rate FiO2 09/08/17 22:45 86 30 95 09/08/17 21:30 149/139 (142) 09/08/17 21:11 Nasal Cannula 6.0 09/08/17 20:47 101.7 Impression: Primary Impression: Acute bronchitis Additional Impressions: Fever COPD exacerbation Condition: Improved Disposition: Admitted from ER Referrals: ALBERT SANCHEZ MD (PCP) New Scripts Cefdinir 300 Mg Cap (OMNICEF 300 MG CAP (OR EQUIV)) 300 Mg Cap 300 MG PO BID, #10 CAP Prov: ALBERT IBANEZ DO 09/09/17 Prednisone (PREDNISONE) 20 Mg Tablet 20 MG PO QDAY, #3 TAB Prov: ALBERT IBANEZ DO 09/09/17 Problem Qualifiers Primary Impression: Acute bronchitis Bronchitis organism: unspecified organism Qualified Codes: J20.9 - Acute bronchitis, unspecified Additional Impressions: Fever Fever type: unspecified Qualified Codes: R50.9 - Fever, unspecified DEVORA LYLES DO Sep 08, 2017 20:54
[2017-09-08] MEDS ORDERED: ALBUTEROL/IPRATROPIUM 3 ML NEB NEB ONE (20:55)
[2017-09-08] MEDS ORDERED: methylPREDNIS SUCC 125 MG/2ML IVP ONE (20:55)
[2017-09-08 21:00] LABS: PLATELET COUNT, AUTOMATED 301 K/uL (150-450)
--- NOTE | 2017-09-08 21:36 | EKG ---
FACILITY: [facility] [place] PATIENT NAME: ALEKSANDR BARON : [id number] MR: [id number] V: [id number] EXAM DATE: ORDERING PHYSICIAN: DEVORA LYLES TECHNOLOGIST: PEDRO LUIS Test Reason : COPD EXASERBATION Blood Pressure : / mmHG Vent. Rate : 093 BPM Atrial Rate : 093 BPM P-R Int : 126 ms QRS Dur : 076 ms QT Int : 324 ms P-R-T Axes : 075 015 084 degrees QTc Int : 402 ms Normal sinus rhythm Normal ECG When compared with ECG of 24-AUG-2017 20:03, Previous ECG has undetermined rhythm, needs review Confirmed by ALBERT IBANEZ ([id number]) on 09/09/2017 2:50:38 PM Referred By: Confirmed By:ALBERT IBANEZ
[2017-09-08] MEDS ORDERED: IOPAMIDOL 76% 75 ML INFUS BTL 75 ML ONE (22:20)
[2017-09-08] MEDS ORDERED: NS 0.9% 25 ML BAG 50 ML ONE (22:21)
--- NOTE | 2017-09-08 23:25 | RADIOLOGY IMAGING REPORT ---
FACILITY: [facility] PATIENT NAME: Domitila Vera : 1940 MR: [id number] V: [id number] EXAM DATE: ORDERING PHYSICIAN: DEVORA LYLES TECHNOLOGIST: Location: [facility] - [place], [place] Patient: Domitila Vera : 1940 Visit/Account:[id number] Date of Sevice: 09/08/2017 CT angiogram of the chest: Indication: Hypoxia and fever. Technique: Helical CT was performed through the chest following IV contrast enhancement with 75 cc of Isovue 370. Multiplanar reconstructions and MIP images are reviewed. One of the following dose optimization techniques was utilized in the performance of this exam: Autom ated exposure control; adjustment of the mA and/or kV according to the patient's size; or use of an i terative reconstruction technique. Specific details can be referenced in the facility's radiology CT exam operational policy. Comparison: 04/01/2014 Pulmonary arteries: There is uniform contrast enhancement. There are no signs of pulmonary emboli. Aorta and great vessels: There is mild atherosclerotic calcification in the aortic arch and proximal great vessels, without significant change. There is uniform contrast enhancement. There are no signs of dissection or aneurysm. Heart and pericardial soft tissues: There is moderate atherosclerotic calcification in the left coron arnaud arteries. The heart size is normal. No pericardial effusion is identified. Mediastinal soft tissues: Unremarkable. Lung silva: There are chronic emphysematous changes. No acute process or focal parenchymal abnormali ty is identified. Pleural spaces: No evidence of effusion, focal pleural thickening, or pneumothorax. Skeletal structures: There are chronic degenerative changes in the thoracic spine. No acute skeletal deformity is identified. Upper abdomen: Unremarkable, as visualized. IMPRESSION: No evidence of pulmonary emboli. No acute parenchymal or pleural process is identified. Report Dictated By: Nicko Cash MD at 09/08/2017 11:11 PM Report E-Signed By: Nicko Cash MD at 09/08/2017 11:22 PM [id number]
--- NOTE | 2017-09-09 00:27 | History & Physical ---
History of Present Illness Chief Complaint Worsening dyspnea History of Present Illness Mrs. Stallings is a 76 y.o. female with PMH of COPD, CHF, Hypothyroidism, Dyslipidemia, PUD, Anemia and Depression who presented to the ER with shortness of breath for 1 day. She has been having upper respiratory symptoms for 3 days and developed fever today. She tried home nebulizer treatments but no significant improvement in her dyspnea. Her white blood cell count are normal. She has myelodysplasia and chronic anemia. She was seen by a school plant consultant on 08/29/17. Patient was seen in the ER on 08/24 and transferred to [facility] with an elevated troponin and medical management was done. Her lactate is not elevated and troponin is unremarkable. Her EKG shows no evidence of ischemia. Her d-dimer was elevated. A CT pulmonary angiogram was performed to rule out pulmonary embolism and ruled out APE, infiltrates and pneumonia. She is requiring 6 L of O2 to keep her saturations in the normal range. Her urinalysis was unremarkable. In the ER she was given Solu-Medrol 125 mg and DuoNeb treatment. She tried getting up to go to the bathroom and developed significant SOB . On ambulation to the bathroom. I discussed the case with the ER-MD and admitted the patient for further evaluation and management. History Home Meds Active Scripts Trazodone Hcl (TRAZODONE HCL) 50 Mg Tablet, 50 MG PO QHS for insomnia, #30 Prov:CANDE LAMAR MD 06/10/13 Reported Medications Vit C/Vit E/Lutein/Min/[place]-3 (OCUVITE SOFTGEL) 1 Each Capsule, 1 EACH PO DAILY , CAPSULE 03/21/17 Naproxen Sodium (ALEVE) 220 Mg Capsule, 220 MG PO TID Y for PAIN, CAPSULE 03/21/17 Guaifenesin (Guaifenesin ER) 600 Mg Tab.er.12h, 1 TAB PO DAILY 11/07/16 Carvedilol (CARVEDILOL) 3.125 Mg Tab, 3.125 MG PO DAILY, TAB 11/07/16 Aspirin (ASPIR 81) 81 Mg Tablet.dr, 81 MG PO QDAY, TAB 04/21/15 Cholecalciferol (Vitamin D3) (VITAMIN D) 400 Unit Capsule, 400 UNIT PO QDAY, CAPSULE 04/08/15 Levothyroxine Sodium (LEVOTHYROXINE SODIUM) 0.125 Mg Tab, 0.125 MG PO QDAY, TAB 06/02/14 Atorvastatin Calcium (ATORVASTATIN CALCIUM) 10 Mg Tablet, 1 TAB PO HS, TAB 06/02/14 Albuterol Sulfate 90 Mcg/Act (PROAIR HFA 90 MCG/ACT) 8.5 Gm Hfa.aer.ad, 1-2 PUFF IH QID Y for WHEEZING 06/02/14 Albuterol Sulfate (Albuterol Inh Conc) 2.5 Mg/0.5 Ml Nebu, 2 PUFF INH PRN, 0 Refills DILUTE BEFORE USING 09/11/10 Oxygen (Oxygen) 2 L Inha, 4 L INH QHS, 0 Refills 09/11/10 Allergies: Coded Allergies: No Known Drug Allergies (Verified , 09/08/17) Patient History: FH: brain tumor BROTHER OR SISTER FH: throat cancer BROTHER OR SISTER FHx: lung cancer FATHER, Hx Smoking: Yes (QUIT 2011, SMOKED 1 PPD X 50+ YRS) Smoking Status: Former Smoker Exposure to Second Hand Smoke?: Yes Caffeine Intake: Coffee, Soda Caffeine/Cups Per Day: 1 CUP COFFEE PER DAY. OCCASIONAL SODA Hx Alcohol Use: Yes Hx Substance Use Disorder: No Social Drug Use: Never Review of Systems Constitutional: No Fever, No Weight Loss, No Weight Gain, No Chills Neurological: No Confusion, No Weakness, No Dizziness Cardiovascular: No Chest Pain, No Palpitations Respiratory: Shortness of Breath, No Cough, No Wheezing Gastrointestinal: No Nausea, No Vomiting, No Diarrhea, No Constipation, No Abdominal Pain Genitourinary: No Dysuria, No Hematuria Musculoskeletal: No Pain, No Sprain, No Strain, No Impaired Mobility Psychiatric: No Depression, No Anxiety Exam Vital Signs Vital Signs Date Time Temp Pulse Resp B/P (MAP) Pulse Ox O2 Delivery O2 Flow Rate FiO2 09/09/17 03:48 97.7 68 16 109/60 (76) 98 Nasal Cannula 5.0 General Appearance: Alert, Awake, No Acute Distress, Afebrile Neuro: No Gross deficits Eyes: PERRLA ENT: Normal Neck: No Masses Cardiovascular: Normal Rhythm & Peripheral Pulses, Other (distant heart sounds) Respiratory: Other (decrease air entry bilaterally) GI: Abd Soft and Non-Tender Extremities: Soft and Non Tender Integumentary: Generalized Fragile Skin Psych: Alert & Oriented X3, Appropriate Mood & Affect Medical Decision Making Data Points Result Diagram: 09/08/17202909/08/172029 EKG / Imaging Monitor Interpretation: Normal Sinus Rhythm Pre-Admit Course ED Medications reviewed Medical Record Review: Yes Assessment and Plan Problems: (1) COPD with acute exacerbation Status: Acute Assessment & Plan: I will admit this patient to medical floor for further evaluation and management I will start Oxygen via NC to keep the O2 Sat >90% I will start Rocephin 2gm IV q daily for Acute Bronchitis I will start Solumedrol 40mg IV q8h I will start Protonix 40mg po qd I will start SCD's for DVTP I will start Duoneb 1 unit treatments q 4h I will start Albuterol treatments q2h as needed I will get CBC and BMP in am (2) Acute bronchitis Status: Acute Assessment & Plan: I will start Oxygen via NC to keep the O2 Sat >90% I will start Rocephin 2gm IV q daily for Acute Bronchitis (3) Hypokalemia Status: Acute Assessment & Plan: I will replace potassium with KCL 40meq IV I will repeat BMP and Mag level in am Central Venous Access Medical Necessity for Access: IV Access, Medication Administration Time Spent on Plan of Care: > 30 min Copies to: ERMELINDA JOSE MD; ALBERT SANCHEZ MD Venous Thromboembolism VTE Risk Physician Assess for VTE Risk: Yes Patient's VTE Risk: High VTE Diagnostic Test 2 Days Prior to Admit: No Antithrombotics Is Pt On Any Antithrombotics?: No Exam Sepsis Risk: No Definite Risk Problem Qualifiers (1) Acute bronchitis: Bronchitis organism: unspecified organism Qualified Codes: J20.9 - Acute bronchitis, unspecified JANNA ANGUIANO MD Sep 09, 2017 00:26
[2017-09-09 00:48] VITALS: BP 112/61
[2017-09-09 03:48] VITALS: BP 109/60
[2017-09-09] MEDS ORDERED: ONDANSETRON 4 MG/2 ML VIAL IVP PRN (05:00)
[2017-09-09] MEDS ORDERED: NS(*) 0.9% 1000 ML BAG 1,000 ML IV PRN (05:00)
[2017-09-09] MEDS ORDERED: ACETAMINOPHEN 325 MG TAB PO PRN (05:00)
[2017-09-09] MEDS ORDERED: ALBUTEROL 2.5 MG/3 ML NEB NEB PRN (05:05)
[2017-09-09] MEDS: ALBUTEROL/IPRATROPIUM 3 ML NEB NEB SCH ×3 (05:40→13:20)
[2017-09-09] MEDS ORDERED: LEVOTHYROXINE SOD 0.125 MG TAB PO SCH (06:00)
[2017-09-09] MEDS ORDERED: cefTRIAXone(*) 2 GM VIAL 2 GM in NS(*) 0.9% 100 ML ADDVANT BAG 100 ML IVPB SCH (06:00)
[2017-09-09] MEDS ORDERED: PANTOPRAZOLE SOD 40 MG TABEC PO SCH (06:00)
[2017-09-09] MEDS ORDERED: KCL (*) 20 MEQ/100 ML PREMIX 100 ML IV ONE ×2 (07:00→09:00)
[2017-09-09 07:41] VITALS: BP 107/55
[2017-09-09] MEDS ORDERED: methylPREDNIS SUCC 125 MG/2ML IVP SCH (09:00)
[2017-09-09] MEDS ORDERED: CARVEDILOL 3.125 MG TAB PO SCH (09:00)
[2017-09-09] MEDS ORDERED: ASPIRIN 81 MG ENTERIC COATED PO SCH (09:00)
[2017-09-09] MEDS ORDERED: CEF300 PO (11:05)
[2017-09-09] MEDS ORDERED: PRED20TA6 PO (11:05)
--- NOTE | 2017-09-09 11:09 | Hospitalist Depart ---
Discharge Summary Reason for Hosp/Final Diag: (1) COPD with acute exacerbation Status: Acute Hospital Course & Plan: She did present with increased shortness of breath. Her chest CT was negative for infiltrate or pulmonary emboli. She was started on empiric treatment with steroids and ceftriaxone. Her symptoms improved overnight. She will discharge on a prednisone burst and oral cefdinir. (2) Hypokalemia Status: Acute Hospital Course & Plan: She did receive supplemental potassium. Departure Latest Vital Signs Vital Signs 09/09/17 09/09/17 07:41 10:42 Temp 97.6 Pulse 71 Resp 16 B/P (MAP) 107/55 (72) Weight (Pounds): 148 Weight (Ounces): 5.0 Result Diagram: 09/08/17202909/08/172029 Condition: Improved Discharge: Home, Self Care Discharge Instructions Home Meds Active Scripts Cefdinir 300 Mg Cap (OMNICEF 300 MG CAP (OR EQUIV)) 300 Mg Cap, 300 MG PO BID, # 10 CAP Prov:ALBERT IBANEZ DO 09/09/17 Prednisone (PREDNISONE) 20 Mg Tablet, 20 MG PO QDAY, #3 TAB Prov:ALBERT IBANEZ DO 09/09/17 Trazodone Hcl (TRAZODONE HCL) 50 Mg Tablet, 50 MG PO QHS for insomnia, #30 Prov:CANDE LAMAR MD 06/10/13 Reported Medications Vit C/Vit E/Lutein/Min/[place]-3 (OCUVITE SOFTGEL) 1 Each Capsule, 1 EACH PO DAILY , CAPSULE 03/21/17 Naproxen Sodium (ALEVE) 220 Mg Capsule, 220 MG PO TID Y for PAIN, CAPSULE 03/21/17 Guaifenesin (Guaifenesin ER) 600 Mg Tab.er.12h, 1 TAB PO DAILY 11/07/16 Carvedilol (CARVEDILOL) 3.125 Mg Tab, 3.125 MG PO DAILY, TAB 11/07/16 Aspirin (ASPIR 81) 81 Mg Tablet.dr, 81 MG PO QDAY, TAB 04/21/15 Cholecalciferol (Vitamin D3) (VITAMIN D) 400 Unit Capsule, 400 UNIT PO QDAY, CAPSULE 04/08/15 Levothyroxine Sodium (LEVOTHYROXINE SODIUM) 0.125 Mg Tab, 0.125 MG PO QDAY, TAB 06/02/14 Atorvastatin Calcium (ATORVASTATIN CALCIUM) 10 Mg Tablet, 1 TAB PO HS, TAB 06/02/14 Albuterol Sulfate 90 Mcg/Act (PROAIR HFA 90 MCG/ACT) 8.5 Gm Hfa.aer.ad, 1-2 PUFF IH QID Y for WHEEZING 06/02/14 Albuterol Sulfate (Albuterol Inh Conc) 2.5 Mg/0.5 Ml Nebu, 2 PUFF INH PRN, 0 Refills DILUTE BEFORE USING 09/11/10 Oxygen (Oxygen) 2 L Inha, 4 L INH QHS, 0 Refills 09/11/10 Diet: Regular Activity: As Tolerated Copies to: ALBERT SANCHEZ MD Venous Thromboembolism Antithrombotics Is Pt On Any Antithrombotics?: No ALBERT IBANEZ DO Sep 09, 2017 11:09
[2017-09-09] MEDS ORDERED: traZODone HCL 50 MG TAB PO SCH (21:00)
[2017-09-09] MEDS ORDERED: ATORVASTATIN 10 MG TAB PO SCH (21:00)
== END 2017-09-09 13:10 | disposition home or self-care (01) | DRG 190 ==
LOC: ER 20:57 → MED 09-09 00:04
PROVIDERS: ADMIT Specialist; ATTEND Specialist
DX: J44.1 Chronic obstructive pulmonary disease with (acute) exacerbation (principal); I21.4 Non-ST elevation (NSTEMI) myocardial infarction; J44.0 Chronic obstructive pulmonary disease with (acute) lower respiratory infection; E87.6 Hypokalemia; D46.9 Myelodysplastic syndrome, unspecified; E03.9 Hypothyroidism, unspecified; E78.5 Hyperlipidemia, unspecified; K27.9 Peptic ulcer, site unspecified, unspecified as acute or chronic, without hemorrhage or perforation; F32.9 Major depressive disorder, single episode, unspecified; K21.9 Gastro-esophageal reflux disease without esophagitis; Z99.81 Dependence on supplemental oxygen; Z87.891 Personal history of nicotine dependence; Z96.642 Presence of left artificial hip joint; J20.9 Acute bronchitis, unspecified
CPT/HCPCS: 36415; 71275; 81001; 82040; 82247; 82310; 82374; 82435; 82565; 82947; 83605; 83880; 84075; 84132; 84155; 84295; 84450; 84460; 84484; 84520; 85025; 85379; 87040; 93005; 94640; J0696; J2930; J3480; J7030; J7050; Q9967

== ENCOUNTER → 2017-09-08 | Outpatient (CLI) | payer MEDICARE, BC ==
[2016-01-10 16:52] VITALS: BMI 25.4
[~2017-09-08] MED LIST changes: +CEF300 PO
== END ==
LOC: AMB 20:10
PROVIDERS: ATTEND Nurse Practitioner
DX: R06.02 Shortness of breath (principal); J44.9 Chronic obstructive pulmonary disease, unspecified
CPT/HCPCS: A0425; A0427

== ENCOUNTER 2017-09-12 09:52 | Outpatient (RCR) | payer MEDICARE, BC ==
[2016-01-10 16:52] VITALS: Wt 67.5 kg
[2017-06-27 10:42] VITALS: BP 119/79
[2017-07-11 11:12] VITALS: BP 125/67
[2017-07-25 10:57] VITALS: BP 98/58
[2017-08-08 10:29] VITALS: BP 126/72
[2017-08-22 10:41] VITALS: BP 136/67
[2017-08-22 10:54] LABS: PLATELET COUNT, AUTOMATED 291 K/uL (150-450)
[2017-08-29 11:40] VITALS: BP 124/81
--- NOTE | 2017-08-29 15:24 | ONCOLOGY FOLLOW UP NOTE ---
EVENT DATE: August 29, 2017 REASON FOR FOLLOWUP Anemia of chronic disease, likely early myelodysplasia. INTERIM HISTORY Domitila returns to clinic for a followup today. She is accompanied by her . Unfortunately, she was recently hospitalized at the [facility] for a COPD exacerbation. I have reviewed the notes from that hospitalization, and she was also found to have a troponin leak. She was treated with corticosteroids with improvement. She was subsequently discharged home. She reports that she has had some ongoing fatigue and weakness , but that her shortness of breath seems to be improving somewhat. She is currently on 5L nasal cannula. She relates that her oxygen had "fallen off" in the middle of the night, and she was basically unable to move, and she was subsequently taken by EMS to the hospital. She does seem to be maintaining oxygenation at this point. She reports some ongoing musculoskeletal aches and pains, and she is frustrated that she has not been able to get back to the gym to ride the stationary bike. She reports no fever. She continues to have a modestly productive cough without hemoptysis. REVIEW OF SYSTEMS Otherwise negative, and all systems were reviewed. PAST MEDICAL HISTORY 1. Suspected myelodysplasia with chronic normocytic anemia. 2. COPD on supplemental oxygen. 3. Hypertension. 4. Hypercholesterolemia. 5. Type 2 diabetes mellitus. 6. Hypothyroidism. 7. Anemia of chronic disease with inappropriately low erythropoietin. PAST SURGICAL HISTORY 1. Status post total abdominal hysterectomy in December 2015. 2. Status post femur pinning for fracture in July 2013. 3. History of neck fusion. 4. History of bilateral shoulder repair. 5. History of minor back surgery. CURRENT MEDICATIONS 1. Prednisone. 2. Levaquin. 3. Aspirin. 4. Albuterol. 5. Symbicort. 6. Vitamin D. 7. Levothyroxine. 8. Atorvastatin. 9. Albuterol. 10. Montelukast. 11. Quetiapine. 12. Carvedilol. 13. Trazodone. 14. Supplemental oxygen. ALLERGIES No known drug allergies. 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 She is . She is a former smoker, having smoked about a pack a day for 30 years. She quit in 2012. There is no history of alcohol abuse or illicit drug use. FAMILY HISTORY There is a family history of head and neck cancer in her son. VITAL SIGNS Temperature 98, blood pressure 124/81, heart rate is 93, respirations 16, oxygen saturation is 89% on 6L. Weight is 67.5 kg. PHYSICAL EXAMINATION GENERAL: Patient is alert and oriented times three in no apparent distress sitting in the exam room chair. She appears somewhat tired, but she is interactive and pleasant. HEENT: Exam reveals anicteric sclerae. No significant oropharyngeal lesions. NEUROLOGIC: Exam is grossly nonfocal, although her gait is somewhat slow and antalgic. EXTREMITIES: Exam reveals some slight edema of the lower extremities, but no cyanosis. SKIN: Exam reveals no concerning rash or lesion. LABORATORY STUDIES Reviewed per the [facility] records. IMAGING None today. ASSESSMENT AND PLAN Chronic anemia, myelodysplasia. Domitila seems to be doing a bit better slowly with time, but we spent time today discussing her recent hospitalization for COPD exacerbation. She is currently on a prednisone taper. She does seem to be recovering slowly. We spent time reviewing her labs. Her most recent hematocrit at the [facility] was 33 a few days ago. I do think it will be palumbo for her to get back on track with her Aranesp injections. We will go to the [facility] to schedule her labs and followup in that regard. We discussed that it is very likely that her troponin leak/myocardial infarction was due to chronic and prolonged hypoxemia. I do think that given the improvement in her hemoglobin that we have seen with TIFFANIE support, it is most likely worth the cardiovascular risk. The patient agrees. I will plan to see her back in three months for followup, or sooner if there are questions or concerns. BIBI
[~2017-09-12 09:52] MED LIST changes: +CEF300 PO; +DARBEPOETIN ESRD 100 MCG/0.5ML SYR SC ONE
[2017-09-12 10:15] VITALS: BP 114/58
[2017-09-12 10:18] LABS: PLATELET COUNT, AUTOMATED 332 K/uL (150-450)
[2017-09-25 10:05] LABS: PLATELET COUNT, AUTOMATED 244 K/uL (150-450)
== END 2017-09-24 ==
LOC: SPU 09:52
PROVIDERS: ATTEND Internal Medicine Hematology
DX: D46.9 Myelodysplastic syndrome, unspecified (principal); D64.9 Anemia, unspecified; J44.9 Chronic obstructive pulmonary disease, unspecified; Z87.891 Personal history of nicotine dependence; E11.9 Type 2 diabetes mellitus without complications
CPT/HCPCS: 36415; 85025; 85027; 96372; G0463; J0882; 99212

== ENCOUNTER 2017-10-10 21:43 | Emergency (ER) | payer MEDICARE, BC ==
[2016-01-10 16:52] VITALS: Wt 67.3 kg
[~2017-10-10 21:43] MED LIST changes: -DARBEPOETIN ESRD 100 MCG/0.5ML SYR SC ONE; -TRAZ-156 PO; +TRAZ50TA34 PO
--- NOTE | 2017-10-10 21:58 | ER Report ---
History and Physical Time Seen By MD: 21:58 Hx. of Stated Complaint: trouble breathing, "croup" cough HPI/ROS CHIEF COMPLAINT: Shortness of breath HISTORY OF PRESENT ILLNESS: This is a 76-year-old female. She has COPD. She has been very short of breath today. Despite using her breathing treatments and restaurant medicines at home, this is not improved. She is coughing a lot but no increase in sputum production. No fevers or chills. She denies any chest pain. No nausea or vomiting. No problem with bowel or bladder function. Allergies: Coded Allergies: No Known Drug Allergies (Verified , 09/08/17) Home Meds Active Scripts Ipratropium/Albuterol Sulfate (IPRAT-ALBUT 0.5-3(2.5) MG/3 ML) 3 Ml Ampul.neb, 3 ML IH Q6H Y for SHORTNESS OF BREATH, #1 BOX 0 Refills Prov:SINA MCCANN MD 10/10/17 Prednisone (PREDNISONE) 20 Mg Tablet, 60 MG PO QDAY, #12 TAB 0 Refills Prov:SINA MCCANN MD 10/10/17 Trazodone Hcl (TRAZODONE HCL) 50 Mg Tablet, 50 MG PO QHS for insomnia, #30 Prov:CANDE LAMAR MD 06/10/13 Reported Medications Vit C/Vit E/Lutein/Min/[place]-3 (OCUVITE SOFTGEL) 1 Each Capsule, 1 EACH PO DAILY , CAPSULE 03/21/17 Naproxen Sodium (ALEVE) 220 Mg Capsule, 220 MG PO TID Y for PAIN, CAPSULE 03/21/17 Guaifenesin (Guaifenesin ER) 600 Mg Tab.er.12h, 1 TAB PO DAILY 11/07/16 Carvedilol (CARVEDILOL) 3.125 Mg Tab, 3.125 MG PO DAILY, TAB 11/07/16 Aspirin (ASPIR 81) 81 Mg Tablet.dr, 81 MG PO QDAY, TAB 04/21/15 Cholecalciferol (Vitamin D3) (VITAMIN D) 400 Unit Capsule, 400 UNIT PO QDAY, CAPSULE 04/08/15 Levothyroxine Sodium (LEVOTHYROXINE SODIUM) 0.125 Mg Tab, 0.125 MG PO QDAY, TAB 06/02/14 Atorvastatin Calcium (ATORVASTATIN CALCIUM) 10 Mg Tablet, 1 TAB PO HS, TAB 06/02/14 Albuterol Sulfate 90 Mcg/Act (PROAIR HFA 90 MCG/ACT) 8.5 Gm Hfa.aer.ad, 1-2 PUFF IH QID Y for WHEEZING 06/02/14 Albuterol Sulfate (Albuterol Inh Conc) 2.5 Mg/0.5 Ml Nebu, 2 PUFF INH PRN, 0 Refills DILUTE BEFORE USING 09/11/10 Oxygen (Oxygen) 2 L Inha, 4 L INH QHS, 0 Refills 09/11/10 Discontinued Scripts Cefdinir 300 Mg Cap (OMNICEF 300 MG CAP (OR EQUIV)) 300 Mg Cap, 300 MG PO BID, # 10 CAP Prov:ALBERT IBANEZ DO 09/09/17 Prednisone (PREDNISONE) 20 Mg Tablet, 20 MG PO QDAY, #3 TAB Prov:MARCELLEALBERT DO 09/09/17 Reviewed Nurses Notes: Yes Hx Smoking: Yes Smoking Status: Former Smoker Exposure to Second Hand Smoke?: Yes Hx Substance Use Disorder: No Hx Alcohol Use: No Constitutional Vital Sign - Last 24 Hours 10/10/17 10/10/17 10/10/17 10/10/17 21:48 21:52 21:58 22:01 Temp 98.7 Pulse 78 79 Resp 22 29 B/P (MAP) 114/44 (67) 114/44 108/60 (76) Pulse Ox 97 93 O2 Delivery Nasal Cannula 10/10/17 10/10/17 10/10/17 10/10/17 22:05 22:05 22:08 22:13 Pulse 73 70 71 Resp 16 16 18 Pulse Ox 95 98 O2 Delivery Nasal Cannula O2 Flow Rate 2.0 10/10/17 10/10/17 10/10/17 10/10/17 22:28 22:43 22:58 23:00 Pulse 72 ??? 70 Resp 25 23 Pulse Ox 96 97 O2 Flow Rate 4.0 10/10/17 10/10/17 23:13 23:28 Pulse 70 81 Resp 24 31 Pulse Ox 97 91 Physical Exam General Appearance: The patient is alert. No acute distress. Eyes: Pupils are equal, round. Reactive to light. No pallor, injection or icterus. Extraocular movements are intact. ENT: Mucous membranes are moist. Normal oral mucosa. Posterior oropharynx is normal. Neck: Supple and non tender. No lymphadenopathy. Respiratory: Lungs are clear, but with very poor air movement throughout, no wheezing. There are no retractions or accessory muscle use. Cardiovascular: Regular rate and rhythm. No murmurs, gallops or rubs. Normal capillary refill. Gastrointestinal: Abdomen is soft and non tender. Nondistended. Normal active bowel sounds. Neurological: Alert and oriented x3. Skin: Warm and dry. No rashes. DIFFERENTIAL DIAGNOSIS: After history and physical exam, differential diagnosis was considered for patient with COPD, who is short of breath, this appears to be exacerbation. Medical Decision Making Data Points Result Diagram: 10/10/17214910/10/172149 Laboratory Hematology Test 10/10/17 21:50 Red Blood Count 3.48 M/uL (4.17-5.56) Mean Corpuscular Volume 91.8 fL (80.0-96.0) Mean Corpuscular Hemoglobin 30.4 pg (26.0-33.0) Mean Corpuscular Hemoglobin Concent 33.1 g/dL (32.0-36.0) Red Cell Distribution Width 16.5 % (11.5-14.5) Mean Platelet Volume 7.8 fL (7.2-11.1) Neutrophils (%) (Auto) 41.1 % (39.4-72.5) Lymphocytes (%) (Auto) 38.3 % (17.6-49.6) Monocytes (%) (Auto) 15.9 % (4.1-12.4) Eosinophils (%) (Auto) 4.3 % (0.4-6.7) Basophils (%) (Auto) 0.4 % (0.3-1.4) Nucleated RBC Relative Count (auto) 0.0 /100WBC Neutrophils # (Auto) 2.3 K/uL (2.0-7.4) Lymphocytes # (Auto) 2.2 K/uL (1.3-3.6) Monocytes # (Auto) 0.9 K/uL (0.3-1.0) Eosinophils # (Auto) 0.2 K/uL (0.0-0.5) Basophils # (Auto) 0.0 K/uL (0.0-0.1) Nucleated RBC Absolute Count (auto) 0.00 K/uL Sodium Level 142 mmol/L (137-145) Potassium Level 3.6 mmol/L (3.5-5.0) Chloride Level 89 mmol/L (98-107) Carbon Dioxide Level 46 mmol/L (22-31) Blood Urea Nitrogen 17 mg/dl (7-18) Creatinine 1.10 mg/dl (0.52-1.04) Glomerular Filtration Rate Calc 48.4 Random Glucose 105 mg/dl (75-110) Calcium Level 8.4 mg/dl (8.4-10.2) Total Bilirubin 0.3 mg/dl (0.2-1.3) Aspartate Amino Transf (AST/SGOT) 30 U/L (0-35) Alanine Aminotransferase (ALT/SGPT) 28 U/L (0-56) Alkaline Phosphatase 80 U/L (0-126) Troponin I < 0.012 ng/ml B-Type Natriuretic Peptide 24 pg/ml (0-100) Total Protein 6.8 g/dl (6.3-8.2) Albumin 3.7 g/dl (3.5-5.0) Chemistry Test 10/10/17 21:50 White Blood Count 5.7 k/uL (4.5-11.0) Red Blood Count 3.48 M/uL (4.17-5.56) Hemoglobin 10.6 g/dL (12.0-16.0) Hematocrit 32.0 % (34.0-47.0) Mean Corpuscular Volume 91.8 fL (80.0-96.0) Mean Corpuscular Hemoglobin 30.4 pg (26.0-33.0) Mean Corpuscular Hemoglobin Concent 33.1 g/dL (32.0-36.0) Red Cell Distribution Width 16.5 % (11.5-14.5) Platelet Count 285 K/uL (150-450) Mean Platelet Volume 7.8 fL (7.2-11.1) Neutrophils (%) (Auto) 41.1 % (39.4-72.5) Lymphocytes (%) (Auto) 38.3 % (17.6-49.6) Monocytes (%) (Auto) 15.9 % (4.1-12.4) Eosinophils (%) (Auto) 4.3 % (0.4-6.7) Basophils (%) (Auto) 0.4 % (0.3-1.4) Nucleated RBC Relative Count (auto) 0.0 /100WBC Neutrophils # (Auto) 2.3 K/uL (2.0-7.4) Lymphocytes # (Auto) 2.2 K/uL (1.3-3.6) Monocytes # (Auto) 0.9 K/uL (0.3-1.0) Eosinophils # (Auto) 0.2 K/uL (0.0-0.5) Basophils # (Auto) 0.0 K/uL (0.0-0.1) Nucleated RBC Absolute Count (auto) 0.00 K/uL Glomerular Filtration Rate Calc 48.4 Calcium Level 8.4 mg/dl (8.4-10.2) Total Bilirubin 0.3 mg/dl (0.2-1.3) Aspartate Amino Transf (AST/SGOT) 30 U/L (0-35) Alanine Aminotransferase (ALT/SGPT) 28 U/L (0-56) Alkaline Phosphatase 80 U/L (0-126) Troponin I < 0.012 ng/ml B-Type Natriuretic Peptide 24 pg/ml (0-100) Total Protein 6.8 g/dl (6.3-8.2) Albumin 3.7 g/dl (3.5-5.0) EKG/Imaging EKG Interpretation 12 lead EKG: Rhythm: normal sinus rhythm, rate 76 [place]: normal QRS: normal ST segments: Nonspecific changes, no ST elevation or depression Imaging CHEST PA AND LAT COMPARISONS: August 24, 2017 ADDITIONAL PERTINENT HISTORY: Shortness of breath FINDINGS: Cardiomediastinal silhouette: Negative. Pulmonary vasculature: Mild atherosclerotic disease of the thoracic aortic arch. Otherwise negative Lung silva: Negative. Pleural spaces: Negative. Osseous structures: Patient status post previous anterior interbody fusion of the lower cervical spine. Surrounding soft tissues: Negative. IMPRESSION: No evidence of acute cardiopulmonary disease. Report Dictated By: Stephan Valentin MD at 10/10/2017 11:10 PM ED Course/Re-evaluation Clinical Indication for ER IV: IV Access ED Course Improved after Solu-Medrol and DuoNeb treatment. Also turn her oxygen down from 6 L to 2-3 L bringing her down to 92% on this level but seemed like it improved her breathing as well in addition to the steroid and DuoNeb. Discussed all this with the patient and she will return home on prednisone and DuoNeb in addition to her regular breathing medicines. Decision to Disposition Date: Oct 10, 2017 Decision to Disposition Time: 23:31 Depart Departure Latest Vital Signs Vital Signs Date Time Temp Pulse Resp B/P (MAP) Pulse Ox O2 Delivery O2 Flow Rate FiO2 10/10/17 23:28 81 31 91 10/10/17 23:00 4.0 10/10/17 22:05 Nasal Cannula 10/10/17 22:01 108/60 (76) 10/10/17 21:52 98.7 Impression: Primary Impression: COPD exacerbation Condition: Improved Disposition: HOME OR SELF-CARE Referrals: ALBERT SANCHEZ MD (PCP) New Scripts Ipratropium/Albuterol Sulfate (IPRAT-ALBUT 0.5-3(2.5) MG/3 ML) 3 Ml Ampul.neb 3 ML IH Q6H Y for SHORTNESS OF BREATH, #1 BOX 0 Refills Prov: SINA MCCANN MD 10/10/17 Prednisone (PREDNISONE) 20 Mg Tablet 60 MG PO QDAY, #12 TAB 0 Refills Prov: SINA MCCANN MD 10/10/17 Patient Instructions: COPD (Chronic Obstructive Pulmonary Disease) (ED) Additional Instructions: Your shortness of breath is due to an exacerbation of your COPD. We want you to take the steroid medicine Prednisone 20mg tablets, take 3 tablets once a day for 4 more days starting tomorrow morning. Keep using all of your regular breathing medicines and your oxygen. In addition to your albuterol, you can use the medicine DuoNeb in the nebulizer. You can use one vial every 6 hours as needed for shortness of breath. SINA MCCANN MD Oct 10, 2017 21:58
[2017-10-10 22:01] VITALS: BP 108/60
[2017-10-10] MEDS ORDERED: methylPREDNIS SUCC 125 MG/2ML IVP ONE (22:05)
[2017-10-10] MEDS ORDERED: ALBUTEROL/IPRATROPIUM 3 ML NEB NEB ONE ×2 (22:05→23:30)
[2017-10-10 22:16] LABS: PLATELET COUNT, AUTOMATED 285 K/uL (150-450)
--- NOTE | 2017-10-10 23:16 | RADIOLOGY IMAGING REPORT ---
FACILITY: [facility] PATIENT NAME: Domitila Vera : 1940 MR: [id number] V: [id number] EXAM DATE: ORDERING PHYSICIAN: SINA MCCANN TECHNOLOGIST: Location: [facility] Patient: Domitila Vera : 1940 Visit/Account:[id number] Date of Sevice: 10/10/2017 CHEST PA AND LAT COMPARISONS: August 24, 2017 ADDITIONAL PERTINENT HISTORY: Shortness of breath FINDINGS: Cardiomediastinal silhouette: Negative. Pulmonary vasculature: Mild atherosclerotic disease of the thoracic aortic arch. Otherwise negative Lung silva: Negative. Pleural spaces: Negative. Osseous structures: Patient status post previous anterior interbody fusion of the lower cervical spi ne. Surrounding soft tissues: Negative. IMPRESSION: No evidence of acute cardiopulmonary disease. Report Dictated By: Stephan Valentin MD at 10/10/2017 11:10 PM Report E-Signed By: Stephan Valentin MD at 10/10/2017 11:12 PM WSN:[id number]
--- NOTE | 2017-10-10 23:24 | EKG ---
[place] [facility] [place] NAME: ALEKSANDR BARON : [id number] MR: [id number]: [id number] EXAM DATE: ORDERING PHYSICIAN: SINA MCCANN TECHNOLOGIST: RICARDO Test Reason : SOB Blood Pressure : / mmHG Vent. Rate : 076 BPM Atrial Rate : 076 BPM P-R Int : 128 ms QRS Dur : 074 ms QT Int : 362 ms P-R-T Axes : 083 078 082 degrees QTc Int : 407 ms Normal sinus rhythm Poor R progression V 1-4 probably due to lead placement. Electrical interference. When compared with ECG of 08-SEP-2017 21:14, Nonspecific T wave abnormality, improved in Lateral leads Confirmed by ALICIA NAJERA ([id number]) on 10/10/2017 11:55:15 PM Referred By: Confirmed By:ALICIA NAJERA
[2017-10-10] MEDS ORDERED: predniSONE 20 MG TAB PO ONE (23:30)
[2017-10-10] MEDS ORDERED: PRED20TA6 PO (23:32)
[2017-10-10] MEDS ORDERED: IPRA3AMP10 IH (23:32)
== END 2017-10-10 23:54 | disposition home or self-care (01) ==
LOC: ER 22:19
DX: J44.1 Chronic obstructive pulmonary disease with (acute) exacerbation (principal); Z87.891 Personal history of nicotine dependence
CPT/HCPCS: 83880; 84484; 85025; 93005; 94640; 96374; 99284; J2930; J7512; J7620; 71046; 82040; 82247; 82310; 82374; 82435; 82565; 82947; 84075; 84132; 84155; 84295; 84450; 84460; 84520

== ENCOUNTER → 2017-11-06 | Outpatient (CLI) | payer MEDICARE, BC ==
[2016-01-10 16:52] VITALS: BMI 25.4
[~2017-11-06] MED LIST changes: +BARIUM SULFATE 176 GM BTL PO ONE; +BARIUM SULFATE 340 GM POWD ONE; +IPRA3AMP10 IH
--- NOTE | 2017-11-06 17:16 | RADIOLOGY IMAGING REPORT ---
FACILITY: [facility] PATIENT NAME: Domitila Vera : 1940 MR: [id number] V: [id number] EXAM DATE: ORDERING PHYSICIAN: JAIME WALLACE TECHNOLOGIST: Location: [facility] [place] Patient: Domitila Vera : 1940 Visit/Account:[id number] Date of Sevice: 11/06/2017 Exam type: ESOPHAGRAM History: Dysphasia Comparison: None. Findings: Double contrast esophagram was performed with thick and thin barium and air contrast. Tertiary waves were noted within the esophagus. There is a transient impression along the posterior wall of the ce rvical esophagus likely from the cricopharyngeus muscle. There is mild to moderate narrowing at the lower esophageal sphincter although 12 mm barium tablet did pass into the stomach. A large amount of gastroesophageal reflux was observed. A hiatal hernia was not appreciated.. The fluoroscopy dose a janeth product is 322.36 micro-López per meter squared IMPRESSION: 1. Transient impression along the posterior wall the cervical esophagus likely from the cricopharyng eus muscle Tertiary waves were noted throughout the esophagus There is a large amount of gastroesophageal reflux with mild to moderate narrowing at the lower esoph ageal sphincter although 12 mm barium tablet did pass into the stomach Report Dictated By: Jessy Gonzalez MD at 11/06/2017 5:01 PM Report E-Signed By: Jessy Gonzalez MD at 11/06/2017 5:10 PM WSN:[email or web address]
== END ==
LOC: RAD 14:26
PROVIDERS: ATTEND Otolaryngology
DX: K21.9 Gastro-esophageal reflux disease without esophagitis (principal); K22.2 Esophageal obstruction
CPT/HCPCS: 74220

== ENCOUNTER 2017-11-19 22:42 | Emergency (ER) | payer MEDICARE, BC ==
[2016-01-10 16:52] VITALS: Wt 65.8 kg
[~2017-11-19 22:42] MED LIST changes: -BARIUM SULFATE 176 GM BTL PO ONE; -BARIUM SULFATE 340 GM POWD ONE
--- NOTE | 2017-11-19 22:54 | ER Report ---
History and Physical Time Seen By MD: 22:54 Hx. of Stated Complaint: PATIENT STATES THAT SHE CAN NOT BREATH; "DID HAVE LOSS OF SIGHT" DOES NOT NOW; STATES THAT SHE HAS HAD A COUGH FOR A WEEK HPI/ROS CHIEF COMPLAINT: shortness of breath HISTORY OF PRESENT ILLNESS: This is a 77 year old female. She has been having increased trouble breathing over the last two days. Having some increased cough, but not productive. Feeling fevers at home and some chills. She has COPD and has been using her inhalers. No nausea or vomiting. No chest pain. Normal urination and bowels. Allergies: Coded Allergies: No Known Drug Allergies (Verified , 11/19/17) Home Meds Active Scripts Azithromycin (ZITHROMAX) 250 Mg Tablet, 2 TAB PO QDAY, #6 TAB 0 Refills Prov:SINA MCCANN MD 11/20/17 Methylprednisolone (METHYLPREDNISOLONE) 4 Mg Tab.ds.pk, 4 MG PO DIRECTED, #1 PACK 0 Refills Prov:SINA MCCANN MD 11/20/17 Ipratropium/Albuterol Sulfate (IPRAT-ALBUT 0.5-3(2.5) MG/3 ML) 3 Ml Ampul.neb, 3 ML IH Q6H PRN for SHORTNESS OF BREATH, #1 BOX 0 Refills Prov:SINA MCCANN MD 10/10/17 Prednisone (PREDNISONE) 20 Mg Tablet, 60 MG PO QDAY, #12 TAB 0 Refills Prov:SINA MCCANN MD 10/10/17 Trazodone Hcl (TRAZODONE HCL) 50 Mg Tablet, 50 MG PO QHS for insomnia, #30 Prov:CANDE LAMAR MD 06/10/13 Reported Medications Vit C/Vit E/Lutein/Min/[place]-3 (OCUVITE SOFTGEL) 1 Each Capsule, 1 EACH PO DAILY, CAPSULE 03/21/17 Naproxen Sodium (ALEVE) 220 Mg Capsule, 220 MG PO TID PRN for PAIN, CAPSULE 03/21/17 Guaifenesin (Guaifenesin ER) 600 Mg Tab.er.12h, 1 TAB PO DAILY 11/07/16 Carvedilol (CARVEDILOL) 3.125 Mg Tab, 3.125 MG PO DAILY, TAB 11/07/16 Aspirin (ASPIR 81) 81 Mg Tablet.dr, 81 MG PO QDAY, TAB 04/21/15 Cholecalciferol (Vitamin D3) (VITAMIN D) 400 Unit Capsule, 400 UNIT PO QDAY, CAPSULE 04/08/15 Levothyroxine Sodium (LEVOTHYROXINE SODIUM) 0.125 Mg Tab, 0.125 MG PO QDAY, TAB 06/02/14 Atorvastatin Calcium (ATORVASTATIN CALCIUM) 10 Mg Tablet, 1 TAB PO HS, TAB 06/02/14 Albuterol Sulfate 90 Mcg/Act (PROAIR HFA 90 MCG/ACT) 8.5 Gm Hfa.aer.ad, 1-2 PUFF IH QID PRN for WHEEZING 06/02/14 Albuterol Sulfate (Albuterol Inh Conc) 2.5 Mg/0.5 Ml Nebu, 2 PUFF INH PRN, 0 Refills DILUTE BEFORE USING 09/11/10 Oxygen (Oxygen) 2 L Inha, 4 L INH QHS, 0 Refills 09/11/10 Reviewed Nurses Notes: Yes Hx Smoking: Yes Smoking Status: Former Smoker Exposure to Second Hand Smoke?: Yes Hx Substance Use Disorder: No Hx Alcohol Use: No Constitutional Vital Sign - Last 24 Hours 11/19/17 11/19/17 11/19/17 11/19/17 22:50 22:50 22:50 23:00 Pulse 76 Resp 18 B/P (MAP) 136/87 (103) 136/87 114/92 (99) Pulse Ox 99 O2 Delivery Nasal Cannula O2 Flow Rate 5.0 11/19/17 11/19/17 11/19/17 11/20/17 23:12 23:30 23:42 00:14 Pulse 73 64 B/P (MAP) 110/68 (82) 133/69 (90) Pulse Ox 98 99 11/20/17 11/20/17 00:30 00:30 Pulse 66 B/P (MAP) 114/99 (104) 114/99 (104) Pulse Ox 99 Physical Exam General Appearance: The patient is alert. No acute distress. Eyes: Pupils are equal, round. No pallor, injection or icterus. ENT: Mucous membranes are moist. Normal oral mucosa. Posterior oropharynx is normal. Normal tympanic membranes and canals. Neck: Supple and non tender. No lymphadenopathy. Respiratory: Lungs diminished throughout. Having some accessory muscle use. Cardiovascular: Regular rate and rhythm. No murmurs, gallops or rubs. Normal capillary refill. Gastrointestinal: Abdomen is soft and non tender. Normal active bowel sounds. Neurological: Alert and oriented x3. Skin: Warm and dry. No rashes. DIFFERENTIAL DIAGNOSIS: After history and physical exam, differential diagnosis was considered for shortness of breath including but not limited to pulmonary infectious process, COPD, asthma, pulmonary embolus and congestive heart failure. Medical Decision Making Data Points Result Diagram: 11/19/17 2312 11/19/17 2312 Laboratory Hematology Test 11/19/17 23:12 Red Blood Count 3.78 M/uL (4.17-5.56) Mean Corpuscular Volume 94.3 fL (80.0-96.0) Mean Corpuscular Hemoglobin 30.5 pg (26.0-33.0) Mean Corpuscular Hemoglobin Concent 32.4 g/dL (32.0-36.0) Red Cell Distribution Width 15.6 % (11.5-14.5) Mean Platelet Volume 8.2 fL (7.2-11.1) Neutrophils (%) (Auto) 62.7 % (39.4-72.5) Lymphocytes (%) (Auto) 21.6 % (17.6-49.6) Monocytes (%) (Auto) 10.6 % (4.1-12.4) Eosinophils (%) (Auto) 2.2 % (0.4-6.7) Basophils (%) (Auto) 2.9 % (0.3-1.4) Nucleated RBC Relative Count (auto) 0.0 /100WBC Neutrophils # (Auto) 5.0 K/uL (2.0-7.4) Lymphocytes # (Auto) 1.7 K/uL (1.3-3.6) Monocytes # (Auto) 0.8 K/uL (0.3-1.0) Eosinophils # (Auto) 0.2 K/uL (0.0-0.5) Basophils # (Auto) 0.2 K/uL (0.0-0.1) Nucleated RBC Absolute Count (auto) 0.00 K/uL Sodium Level 140 mmol/L (137-145) Potassium Level 3.4 mmol/L (3.5-5.0) Chloride Level 88 mmol/L (98-107) Carbon Dioxide Level 45 mmol/L (22-31) Blood Urea Nitrogen 18 mg/dl (7-18) Creatinine 0.90 mg/dl (0.52-1.04) Glomerular Filtration Rate Calc > 60.0 Random Glucose 91 mg/dl (75-110) Lactate 1.6 mmol/L (0.7-2.1) Calcium Level 8.8 mg/dl (8.4-10.2) Total Bilirubin 0.5 mg/dl (0.2-1.3) Aspartate Amino Transf (AST/SGOT) 48 U/L (0-35) Alanine Aminotransferase (ALT/SGPT) 63 U/L (0-56) Alkaline Phosphatase 97 U/L (0-126) Troponin I < 0.012 ng/ml Total Protein 6.2 g/dl (6.3-8.2) Albumin 3.6 g/dl (3.5-5.0) Chemistry Test 11/19/17 23:12 White Blood Count 8.0 k/uL (4.5-11.0) Red Blood Count 3.78 M/uL (4.17-5.56) Hemoglobin 11.5 g/dL (12.0-16.0) Hematocrit 35.6 % (34.0-47.0) Mean Corpuscular Volume 94.3 fL (80.0-96.0) Mean Corpuscular Hemoglobin 30.5 pg (26.0-33.0) Mean Corpuscular Hemoglobin Concent 32.4 g/dL (32.0-36.0) Red Cell Distribution Width 15.6 % (11.5-14.5) Platelet Count 195 K/uL (150-450) Mean Platelet Volume 8.2 fL (7.2-11.1) Neutrophils (%) (Auto) 62.7 % (39.4-72.5) Lymphocytes (%) (Auto) 21.6 % (17.6-49.6) Monocytes (%) (Auto) 10.6 % (4.1-12.4) Eosinophils (%) (Auto) 2.2 % (0.4-6.7) Basophils (%) (Auto) 2.9 % (0.3-1.4) Nucleated RBC Relative Count (auto) 0.0 /100WBC Neutrophils # (Auto) 5.0 K/uL (2.0-7.4) Lymphocytes # (Auto) 1.7 K/uL (1.3-3.6) Monocytes # (Auto) 0.8 K/uL (0.3-1.0) Eosinophils # (Auto) 0.2 K/uL (0.0-0.5) Basophils # (Auto) 0.2 K/uL (0.0-0.1) Nucleated RBC Absolute Count (auto) 0.00 K/uL Glomerular Filtration Rate Calc > 60.0 Lactate 1.6 mmol/L (0.7-2.1) Calcium Level 8.8 mg/dl (8.4-10.2) Total Bilirubin 0.5 mg/dl (0.2-1.3) Aspartate Amino Transf (AST/SGOT) 48 U/L (0-35) Alanine Aminotransferase (ALT/SGPT) 63 U/L (0-56) Alkaline Phosphatase 97 U/L (0-126) Troponin I < 0.012 ng/ml Total Protein 6.2 g/dl (6.3-8.2) Albumin 3.6 g/dl (3.5-5.0) EKG/Imaging Imaging CHEST PA AND LAT HISTORY: Short of breath. History of COPD. COMPARISON: 10/10/2017 and studies dating to 03/12/2008. TECHNIQUE: PA and lateral views of the chest. FINDINGS: Tubes/lines/hardware: There are an anterior plate and screws from cervical fusion. The inferior left screw is fractured, unchanged. There is an orthopedic anchor within the right humeral head. Pulmonary: Lungs are clear. There is no pneumothorax or pleural effusion. Cardiomediastinal: Cardiac and mediastinal silhouettes are within normal limits. There is mild aortic calcification. Bones/soft tissues: No acute osseous abnormality. There is severe degenerative c hange of the right glenohumeral joint. There is superior displacement of the humeral heads, compatible with rotator cuff disease, right greater than left. The visible abdomen is normal. IMPRESSION: 1. No acute cardiopulmonary process. Report Dictated By: Palak Kelly at 11/20/2017 12:34 AM ED Course/Re-evaluation Clinical Indication for ER IV: IV Access ED Course Patient improved with DuoNeb treatment and Solu-Medrol. X-ray negative for pne umonia. Her labs show CO2 retention which is chronic for her and unchanged. She feels better after the treatments. Home with a azithromycin, Medrol Dosepak, and continued use of her inhalers for COPD exacerbation. Decision to Disposition Date: Nov 20, 2017 Decision to Disposition Time: 00:52 Depart Departure Latest Vital Signs Vital Signs Date Time Temp Pulse Resp B/P (MAP) Pulse Ox O2 Delivery O2 Flow Rate FiO2 11/20/17 00:30 66 114/99 (104) 99 11/19/17 22:50 18 Nasal Cannula 11/19/17 22:50 5.0 Impression: Primary Impression: COPD exacerbation Condition: Improved Disposition: HOME OR SELF-CARE Referrals: ALBERT SANCHEZ MD (PCP) New Scripts Azithromycin (ZITHROMAX) 250 Mg Tablet 2 TAB PO QDAY, #6 TAB 0 Refills Prov: SINA MCCANN MD 11/20/17 Methylprednisolone (METHYLPREDNISOLONE) 4 Mg Tab.ds.pk 4 MG PO DIRECTED, #1 PACK 0 Refills Prov: SINA MCCANN MD 11/20/17 Patient Instructions: COPD (Chronic Obstructive Pulmonary Disease) (ED) Additional Instructions: Take the steroid pack (Medrol Dosepak) over the next 6 days. Take the antibiotic Azithromycin 250mg, 2 tablets once a day for 3 days. Keep using your nebulizer treatments. Follow-up with your primary care provider. SINA MCCANN MD Nov 19, 2017 22:54
[2017-11-19] MEDS ORDERED: ALBUTEROL/IPRATROPIUM 3 ML NEB NEB ONE (23:00)
[2017-11-19] MEDS ORDERED: methylPREDNIS SUCC 125 MG/2ML IVP ONE (23:00)
[2017-11-19 23:20] LABS: PLATELET COUNT, AUTOMATED 195 K/uL (150-450)
[2017-11-20 00:30] VITALS: BP 114/99
--- NOTE | 2017-11-20 00:44 | RADIOLOGY IMAGING REPORT ---
FACILITY: [facility] PATIENT NAME: Domitila Vera : 1940 MR: [id number] V: [id number] EXAM DATE: ORDERING PHYSICIAN: SINA MCCANN TECHNOLOGIST: Location: [facility] Patient: Domitila Vera : 1940 Visit/Account:[id number] Date of Sevice: 11/19/2017 CHEST PA AND LAT HISTORY: Short of breath. History of COPD. COMPARISON: 10/10/2017 and studies dating to 03/12/2008. TECHNIQUE: PA and lateral views of the chest. FINDINGS: Tubes/lines/hardware: There are an anterior plate and screws from cervical fusion. The inferior left screw is fractured, unchanged. There is an orthopedic anchor within the right humeral head. Pulmonary: Lungs are clear. There is no pneumothorax or pleural effusion. Cardiomediastinal: Cardiac and mediastinal silhouettes are within normal limits. There is mild aortic calcification. Bones/soft tissues: No acute osseous abnormality. There is severe degenerative change of the right gl enohumeral joint. There is superior displacement of the humeral heads, compatible with rotator cuff d isease, right greater than left. The visible abdomen is normal. IMPRESSION: 1. No acute cardiopulmonary process. Report Dictated By: Palak Kelly at 11/20/2017 12:34 AM Report E-Signed By: Palak Kelly at 11/20/2017 12:41 AM WSN:[id number]
[2017-11-20] MEDS ORDERED: AZITHROMYCIN 250 MG TAB PO ONE (00:50)
[2017-11-20] MEDS ORDERED: methylPREDNIS 4 MG TAB PO ONE (00:50)
[2017-11-20] MEDS ORDERED: AZIT-1 PO (00:53)
[2017-11-20] MEDS ORDERED: METH4TAB66 PO (00:53)
== END 2017-11-20 01:18 | disposition home or self-care (01) ==
LOC: ER 23:15
DX: J44.1 Chronic obstructive pulmonary disease with (acute) exacerbation (principal)
CPT/HCPCS: 36415; 71046; 83605; 84484; 85025; 87040; 99283; J2930; J7509; Q0144; 82040; 82247; 82310; 82374; 82435; 82565; 82947; 84075; 84132; 84155; 84295; 84450; 84460; 84520

== ENCOUNTER 2017-12-12 10:30 | Outpatient (RCR) | payer MEDICARE, BC ==
[2016-01-10 16:52] VITALS: Wt 67.7 kg
[2017-09-25 09:59] VITALS: BP 99/53
[2017-10-10 10:32] LABS: PLATELET COUNT, AUTOMATED 290 K/uL (150-450)
[2017-10-10 11:54] VITALS: BP 98/55
[2017-10-10] MEDS: DARBEPOETIN ESRD 100 MCG/0.5ML SYR IVP PRN (11:54)
[2017-10-24 10:18] VITALS: BP 104/54
[2017-10-24 10:21] LABS: PLATELET COUNT, AUTOMATED 245 K/uL (150-450)
[2017-10-24] MEDS: DARBEPOETIN ESRD 100 MCG/0.5ML SYR IVP PRN (10:29)
[2017-11-07 10:00] VITALS: BP 97/65
[2017-11-07 10:25] LABS: PLATELET COUNT, AUTOMATED 317 K/uL (150-450)
[2017-11-21 09:39] VITALS: BP 123/83
[2017-11-21 09:45] LABS: PLATELET COUNT, AUTOMATED 220 K/uL (150-450)
[2017-11-28 10:32] VITALS: BP 122/65
[2017-11-28 10:41] LABS: PLATELET COUNT, AUTOMATED 250 K/uL (150-450)
--- NOTE | 2017-11-28 17:07 | ONCOLOGY FOLLOW UP NOTE ---
EVENT DATE: November 28, 2017 REASON FOR FOLLOWUP Anemia of chronic disease, likely early myelodysplasia. INTERIM HISTORY Domitila returns to clinic for a followup visit today. She is accompanied by her . Since our last visit, she had been holding her own for the most part, but unfortunately, she did have a recent emergency department visit for another COPD exacerbation. She was not hospitalized this time, however. She was sent home with steroids and antibiotics. Since that time, she reports an improvement in her symptoms. She remains on 6L of oxygen. She does have an occasional modestly productive cough without hemoptysis. She has been continued on antibiotics, but her steroids are now complete. She reports expected dyspnea with exertion, but she reports no chest pain. Her appetite has been fair. Her weight has been relatively stable. She reports no new bowel or bladder symptoms. She does have ongoing fatigue, but she reports at times she does feel more energetic than usual after receiving injections [facility]. REVIEW OF SYSTEMS Otherwise negative, and all systems were reviewed. PAST MEDICAL HISTORY 1. Suspected myelodysplasia with chronic normocytic anemia. 2. COPD, on supplemental oxygen. 3. Hypertension. 4. Hypercholesterolemia. 5. Type 2 diabetes mellitus. 6. Hypothyroidism. 7. Anemia of chronic disease with inappropriately low erythropoietin. PAST SURGICAL HISTORY 1. Status post total abdominal hysterectomy in December 2015. 2. Status post femur pinning for fracture in July 2013. 3. History of neck fusion. 4. History of bilateral shoulder repair. 5. History of minor back surgery. CURRENT MEDICATIONS 1. An antibiotic which the patient is not sure of the name. 2. Methylprednisolone was just completed. 3. Ipratropium/albuterol nebulizer. 4. Trazodone p.r.n. 5. Ocuvite Soft Gel. 6. Aleve p.r.n. 7. Guaifenesin p.r.n. 8. Carvedilol. 9. Aspirin. 10. Cholecalciferol. 11. Levothyroxine. 12. Atorvastatin. 13. Albuterol p.r.n. ALLERGIES No known drug allergies. 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 She is . She is a former smoker, having smoked about a pack a day for 30 years. She quit in 2012. There is no history of alcohol abuse or illicit drug use. FAMILY HISTORY There is a family history of head and neck cancer in her son. VITAL SIGNS Temperature 98.4, blood pressure 122/65, heart rate is 80, respirations 18, oxygen saturation is 98% on 6L nasal cannula. Weight is 67.7 kg. PHYSICAL EXAMINATION GENERAL: Patient is alert and oriented times three, in no apparent distress, sitting in the exam room chair. She is in good spirits and quite interactive. She is wearing oxygen via nasal cannula. HEENT: Anicteric sclerae. NEUROLOGIC: Grossly nonfocal, although her gait is slow and antalgic. EXTREMITIES: No erythema. SKIN: Cursory exam reveals no concerning rash or lesion. LABORATORY STUDIES Currently pending. ASSESSMENT AND PLAN Chronic anemia of chronic disease/myelodysplasia. Domitila is doing fairly well today all things considered. We reviewed her recent emergency department visit for another chronic obstructive pulmonary disease exacerbation. She remains on antibiotics for this, but her steroids have completed. We discussed overall management from a hematologic standpoint. She does seem to be doing well otherwise with ongoing Aranesp injections. We discussed that we will need to hold her Aranesp for a hemoglobin greater than 11, but that in general her hemoglobin has improved somewhat with ongoing erythropoiesis-stimulating agent support. The patient is strongly in favor with continuing as we have been doing. Her labs from today are pending. We will be back in touch with her with these results. I will plan to see her back in three months or sooner if there are questions or concerns. BIBI
[~2017-12-12 10:30] MED LIST changes: +AZIT-1 PO; +METH4TAB66 PO
[2017-12-12 10:39] VITALS: BP 138/94
[2017-12-12 10:47] LABS: PLATELET COUNT, AUTOMATED 236 K/uL (150-450)
== END 2017-12-24 ==
LOC: SPU 10:30
PROVIDERS: ATTEND Internal Medicine Hematology
DX: D64.9 Anemia, unspecified (principal); B46.9 Zygomycosis, unspecified; D46.9 Myelodysplastic syndrome, unspecified; J44.9 Chronic obstructive pulmonary disease, unspecified; E11.9 Type 2 diabetes mellitus without complications
CPT/HCPCS: 36415; 85025; 96374; G0463; J0882; 99212

== ENCOUNTER 2018-03-13 10:26 | Outpatient (RCR) | payer MEDICARE, BC ==
[2016-01-10 16:52] VITALS: BMI 25.4
[2017-12-26 10:41] VITALS: BP 138/69
[2017-12-26 10:44] LABS: PLATELET COUNT, AUTOMATED 207 K/uL (150-450)
[2018-01-10 10:33] VITALS: BP 126/67
[2018-01-10] MEDS: DARBEPOETIN ESRD 100 MCG/0.5ML SYR SC PRN (11:26)
[2018-01-24 10:49] VITALS: BP 110/70
[2018-01-24] MEDS: DARBEPOETIN ESRD 100 MCG/0.5ML SYR SC PRN (11:20)
[2018-02-07 10:53] LABS: PLATELET COUNT, AUTOMATED 313 K/uL (150-450)
[2018-02-07 10:54] VITALS: BP 114/69
[2018-02-21 10:39] VITALS: BP 131/86
[2018-02-21 10:44] LABS: PLATELET COUNT, AUTOMATED 247 K/uL (150-450)
[2018-03-06 10:34] VITALS: BP 157/63
--- NOTE | 2018-03-06 20:05 | ONCOLOGY FOLLOW UP NOTE ---
EVENT DATE: March 06, 2018 REASON FOR FOLLOWUP Anemia of chronic disease, myelodysplasia. INTERIM HISTORY Domitila returns to clinic for a followup visit today. She is accompanied by her . Since our last visit, she has been feeling about the same with the exception of worse issues with her back and limited activity as a result. She reports ongoing low back pain as well as numbness in her legs when she gets up to walk. This has been very frustrating. She reports that she will be undergoing a spinal fusion soon. She reports no fever. Her appetite has been okay, and her weight has been stable. She continues to have shortness of breath with exertion and an occasional modestly productive cough without hemoptysis. REVIEW OF SYSTEMS Otherwise negative, and all systems were reviewed. PAST MEDICAL HISTORY 1. Suspected myelodysplasia with chronic normocytic anemia. 2. COPD, on supplemental oxygen. 3. Hypertension. 4. Hypercholesterolemia. 5. Type 2 diabetes mellitus. 6. Hypothyroidism. 7. Anemia of chronic disease with inappropriately low erythropoietin. PAST SURGICAL HISTORY 1. Status post total abdominal hysterectomy in December 2015. 2. Status post femur pinning for fracture in July 2013. 3. History of neck fusion. 4. History of bilateral shoulder repair. 5. History of minor back surgery. 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 She is . She is a former smoker, having smoked about a pack a day for 30 years. She quit in 2012. There is no history of alcohol abuse or illicit drug use. FAMILY HISTORY There is a family history of head and neck cancer in her son. CURRENT MEDICATIONS 1. Ipratropium/albuterol inhaler. 2. Trazodone p.r.n. 3. Ocuvite Soft Gel. 4. Naproxen p.r.n. 5. Guaifenesin p.r.n. 6. Carvedilol. 7. Baby aspirin. 8. Vitamin D3. 9. Levothyroxine. 10. Atorvastatin. 11. Albuterol inhaler. ALLERGIES No known drug allergies. VITAL SIGNS Temperature is 97.0, blood pressure 157/63, heart rate is 92, respirations 16, oxygen saturation is 93% on 6L. PHYSICAL EXAMINATION GENERAL: Patient is alert and oriented times three, no apparent distress, sitting in the exam room chair. She is in good spirits and quite interactive. HEENT: Anicteric sclerae. She is wearing O2 by nasal cannula. NEUROLOGIC: Grossly nonfocal, although her gait is antalgic, but stable. EXTREMITIES: No erythema or tenderness to palpation. LABORATORY STUDIES Reviewed per the [facility] record. ASSESSMENT AND PLAN Chronic anemia of chronic disease/myelodysplasia. I had a good visit with Domitila and her today. Symptomatically, she continues to get along fairly well with the exception of ongoing back pain and numbness in the extremities. She is planning to undergo a spinal fusion per her report. We spent time today reviewing her labs. She has had a nice rise in her hemoglobin over time, and we have been able to maintain her hemoglobin at about 12. As discussed, we are not going to try to push her any higher than this with the TIFFANIE, but I do think it would be quite reasonable for her to continue with it per protocol as well as routine labs for surveillance. Domitila agrees with this plan. I will plan to see her back in six months or sooner if there are questions or concerns. MTDJaniya
[~2018-03-13 10:26] MED LIST changes: -HYDR-4309 PO; +HYDR-653 PO
[2018-03-13 10:28] VITALS: BP 109/91
[2018-03-13 10:43] LABS: PLATELET COUNT, AUTOMATED 247 K/uL (150-450)
[2018-03-13] MEDS: DARBEPOETIN ESRD 100 MCG/0.5ML SYR SC PRN (11:07)
== END 2018-03-26 ==
LOC: SPU 10:26
PROVIDERS: ATTEND Internal Medicine Medical Oncology
DX: D64.9 Anemia, unspecified (principal); B46.9 Zygomycosis, unspecified; M54.5 Low back pain; R20.2 Paresthesia of skin
CPT/HCPCS: 36415; 85025; 85027; 96372; G0463; J0882; 99212

== ENCOUNTER → 2018-05-02 | Outpatient (CLI) | payer MEDICARE, BC ==
[2016-01-10 16:52] VITALS: BMI 25.4
[~2018-05-02] MED LIST changes: +BARIUM SULFATE 176 GM BTL PO ONE; +BARIUM SULFATE 340 GM POWD ONE; +OCUVITE SOFTGE1 EACH PO; -VIT1CAPS33 PO
--- NOTE | 2018-05-02 14:35 | RADIOLOGY IMAGING REPORT ---
FAC[place] [facility] [place]IENT NAME: Domitila Vera : 1940 MR: [id number] V: [id number] EXAM DATE: ORDERING PHYSICIAN: ALBERT SANCHEZ TECHNOLOGIST: Location: [facility] Patient: Domitila Vera : 1940 Visit/Account:[id number] Date of Sevice: 05/02/2018 Exam type: ESOPHAGRAM History: Dysphasia, food gets stuck Comparison: November 06, 2017. 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 . A large amount of gastroesophageal reflux was observed. There is mild to moderate narrowing at th e lower esophageal sphincter although appears similar to the prior study. No mucosal erosions were i dentified. The fluoroscopy dose area product was 127.05 micro-López per meter squared IMPRESSION: 1. Large amount of gastroesophageal reflux with mild to moderate narrowing at the lower esophageal s phincter although this appears similar to the prior study. Report Dictated By: Jessy Gonzalez MD at 05/02/2018 2:27 PM Report E-Signed By: Jessy Gonzalez MD at 05/02/2018 2:30 PM WSN:[email or web address]
== END ==
LOC: RAD 00:46
PROVIDERS: ATTEND Family Medicine
DX: K21.9 Gastro-esophageal reflux disease without esophagitis (principal)
CPT/HCPCS: 74220

== ENCOUNTER 2018-06-19 10:27 | Outpatient (RCR) | payer MEDICARE, BC ==
[2016-01-10 16:52] VITALS: BMI 25.4
[2018-03-27 10:58] VITALS: BP 104/59
[2018-03-27 11:23] LABS: PLATELET COUNT, AUTOMATED 298 K/uL (150-450)
[2018-04-10 10:22] VITALS: BP 100/48
[2018-04-10 10:32] LABS: PLATELET COUNT, AUTOMATED 231 K/uL (150-450)
[2018-04-10] MEDS: DARBEPOETIN ESRD 100 MCG/0.5ML SYR IVP PRN (11:29)
[2018-04-24 10:27] VITALS: BP 110/54
[2018-04-24 10:37] LABS: PLATELET COUNT, AUTOMATED 290 K/uL (150-450)
[2018-05-08 10:36] VITALS: BP 82/61
[2018-05-08 10:46] LABS: PLATELET COUNT, AUTOMATED 263 K/uL (150-450)
[2018-05-08] MEDS: DARBEPOETIN ESRD 100 MCG/0.5ML SYR IVP PRN (11:06)
[2018-05-22 10:33] VITALS: BP 123/67
[2018-05-22] MEDS: DARBEPOETIN ESRD 100 MCG/0.5ML SYR IVP PRN (11:16)
[2018-06-07 13:09] VITALS: BP 147/101
[~2018-06-19 10:27] MED LIST changes: -BARIUM SULFATE 176 GM BTL PO ONE; -BARIUM SULFATE 340 GM POWD ONE; +FLUO-177 PO; +FURO-47 PO; +PANT40TA65 PO
[2018-06-19 10:41] VITALS: BP 120/81
[2018-06-19 10:45] LABS: PLATELET COUNT, AUTOMATED 212 K/uL (150-450)
[2018-06-19] MEDS: DARBEPOETIN ESRD 100 MCG/0.5ML SYR IVP PRN (10:52)
== END 2018-06-25 ==
LOC: SPU 10:27
PROVIDERS: ATTEND Internal Medicine Medical Oncology
DX: D64.9 Anemia, unspecified (principal); B46.9 Zygomycosis, unspecified
CPT/HCPCS: 36415; 85025; 85027; 96372; 96374; J0882

== ENCOUNTER → 2018-07-25 | Outpatient (CLI) | payer MEDICARE, BC ==
[2016-01-10 16:52] VITALS: BMI 25.4
--- NOTE | 2018-07-25 15:21 | RADIOLOGY IMAGING REPORT ---
FACILITY: [facility] PATIENT NAME: Domitila Vera : 1940 MR: [id number] V: [id number] EXAM DATE: ORDERING PHYSICIAN: CELESTE HUGHES TECHNOLOGIST: Location: [facility] [place] Patient: Domitila Vera : 1940 Visit/Account:[id number] Date of Sevice: 07/25/2018 Exam type: ELBOW 2 VIEW RIGHT History: Fell one month ago still has pain in right elbow Comparison: None. Findings: Two views of the right elbow were submitted there is soft tissue swelling along the posterior aspect of the right elbow best appreciated on the lateral view. No definite fracture or dislocation is seen . No radiopaque foreign body identified IMPRESSION: 1. There is a mild soft tissue swelling over the dorsal aspect of the right elbow although no defini te fracture dislocation seen. If patient has continued symptoms a CT or MR may be helpful to evaluat e for potential occult injury Report Dictated By: Jessy Gonzalez MD at 07/25/2018 3:15 PM Report E-Signed By: Jessy Gonzalez MD at 07/25/2018 3:17 PM WSN:[email or web address]
== END ==
LOC: RAD 12:10
PROVIDERS: ATTEND Physician Assistant
DX: M25.521 Pain in right elbow (principal); B95.7 Other staphylococcus as the cause of diseases classified elsewhere
CPT/HCPCS: 87070

== ENCOUNTER 2018-08-26 13:43 | Emergency (ER) | payer MEDICARE, BC ==
[2016-01-10 16:52] VITALS: Wt 63.5 kg
[~2018-08-26 13:43] MED LIST changes: -TRAZ50TA34 PO; +TRAZ50TA52 PO
[2018-08-26] MEDS ORDERED: OXYGENHOME INH (13:51)
--- NOTE | 2018-08-26 13:53 | ER Report ---
History and Physical Time Seen By MD: 13:53 Hx. of Stated Complaint: Difficulty breathing HPI/ROS CHIEF COMPLAINT: Difficulty breathing HISTORY OF PRESENT ILLNESS: 77 year old female presents to ED with stated shortness of breath and difficulty breathing. States she has a hx of COPD so she has difficulty breathing all of the time, but it has significantly worsened this morning. Reports she has not used her rescue inhaler today. Reports associated symptoms of chills, decreased appetite, nausea, and some dizziness. The dizziness and nausea have been present for quite sometime prior to today. Also reports to having a sore on her left hip. It has been present for over a week. It started out as a bruise, and has progressed to a hematoma that is painful. Denies falling on that hip. REVIEW OF SYSTEMS: Constitutional: Denies fever. Reports chills, decreased appetite. HENT: Reports she feels like she has thrush in her mouth from her recent antibiotics. Was placed on antibiotics for a skin tear that became infected. Respiratory: No cough. Dyspnea as noted above. Cardiovascular: No chest pain, no palpitations. Gastrointestinal: No vomiting, no abdominal pain. Nausea as noted above. : Reports frequency of urination. No foul smelling urine or burning with urination. Musculoskeletal: No back pain. Allergies: Coded Allergies: No Known Drug Allergies (Verified , 08/26/18) Home Meds Active Scripts Ipratropium/Albuterol Sulfate (IPRAT-ALBUT 0.5-3(2.5) MG/3 ML) 3 Ml Ampul.neb, 3 ML IH Q4-6H for shortness of breath, #20 VIAL Prov:SUKHWINDER BERMEO [facility] 08/26/18 Amoxicillin/Pot Clav 875-125 Mg Tab (AUGMENTIN 875-125 TABLET) 1 Each Tablet, 1 TAB PO Q12H for 7 Days, #14 TAB Prov:SUKHWINDER BERMEO 08/26/18 Prednisone (PREDNISONE) 20 Mg Tablet, 40 MG PO DAILY for 5 Days, #10 TAB Prov:SUKHWINDER BERMEO 08/26/18 Nystatin (Nystatin) 100,000 Unit/Ml Oral.susp, 1 TSP PO 4 times a day, #140 ML Prov:SUKHWINDER BERMEO [facility] 08/26/18 Ipratropium/Albuterol Sulfate (IPRAT-ALBUT 0.5-3(2.5) MG/3 ML) 3 Ml Ampul.neb, 3 ML IH Q6H PRN for SHORTNESS OF BREATH, #1 BOX 0 Refills Prov:SINA MCCANN MD 10/10/17 Reported Medications Oxygen (OXYGEN) Inha, 6 L INH QDAY, L 08/26/18 Montelukast Sodium (SINGULAIR) 10 Mg Tablet, 1 TAB PO QDAY, TAB 05/09/18 Furosemide (FUROSEMIDE) 40 Mg Tablet, 40 MG PO QODAY, TAB 05/09/18 Fluoxetine Hcl (FLUOXETINE HCL) 20 Mg Capsule, 40 MG PO QDAY, CAPSULE 05/09/18 Pantoprazole Sodium (PANTOPRAZOLE SODIUM) 40 Mg Tablet.dr, 40 MG PO QDAY PRN for REFLUX, TAB.SR 05/09/18 Naproxen Sodium (ALEVE) 220 Mg Capsule, 220 MG PO TID PRN for PAIN, CAPSULE 03/21/17 Guaifenesin (Guaifenesin ER) 600 Mg Tab.er.12h, 1 TAB PO DAILY 11/07/16 Carvedilol (CARVEDILOL) 3.125 Mg Tab, 3.125 MG PO BID, TAB 11/07/16 Aspirin (ASPIR 81) 81 Mg Tablet.dr, 81 MG PO QDAY, TAB 04/21/15 Levothyroxine Sodium (LEVOTHYROXINE SODIUM) 0.125 Mg Tab, 0.125 MG PO QDAY, TAB 06/02/14 Atorvastatin Calcium (ATORVASTATIN CALCIUM) 10 Mg Tablet, 1 TAB PO HS, TAB 06/02/14 Albuterol Sulfate 90 Mcg/Act (PROAIR HFA 90 MCG/ACT) 8.5 Gm Hfa.aer.ad, 1-2 PUFF IH QID PRN for WHEEZING 06/02/14 Albuterol Sulfate (Albuterol Inh Conc) 2.5 Mg/0.5 Ml Nebu, 2 PUFF INH PRN, 0 Refills DILUTE BEFORE USING 09/11/10 Discontinued Reported Medications Azithromycin (ZITHROMAX) 250 Mg Tablet, 1 TAB PO QDAY, TAB 05/09/18 Oxygen (Oxygen) 2 L Inha, 4 L INH Q24H, 0 Refills 09/11/10 Past Medical/Surgical History Past medical hx of tachycardia, emphysema, pneumonia, COPD, GERD, gall bladd disease, arthritis, back pain, diabetes, thyroid disorders, anxiety, pelvic fracture, and left hip/femur fractures. Past surgical hx of appy, rola, hysterectomy, tubal ligation, neck fusion, bilateral RCR shoulder surgery, 4 left hip replacement, Reviewed Nurses Notes: Yes Hx Smoking: Yes (1 PPD QUIT 2012) Smoking Status: Former Smoker Exposure to Second Hand Smoke?: Yes Hx Substance Use Disorder: No Hx Alcohol Use: No Constitutional Vital Sign - Last 24 Hours 08/26/18 08/26/18 08/26/18 08/26/18 13:45 13:45 13:51 13:52 Temp 97.6 Pulse 85 Resp 18 B/P (MAP) 164/89 157/123 (134) 164/89 (114) Pulse Ox 97 O2 Delivery Nasal Cannula O2 Flow Rate 6.0 08/26/18 08/26/18 08/26/18 08/26/18 14:00 14:15 14:30 14:30 Pulse 73 74 73 88 Resp 31 22 22 18 B/P (MAP) 151/66 (94) 167/98 (121) Pulse Ox 100 100 100 08/26/18 08/26/18 08/26/18 08/26/18 14:30 14:37 15:01 15:15 Pulse 85 73 Resp 18 B/P (MAP) 172/80 (110) Pulse Ox 100 87 O2 Delivery Nasal Cannula O2 Flow Rate 6.0 08/26/18 08/26/18 15:30 15:45 Pulse 76 B/P (MAP) 134/61 (85) Pulse Ox 84 Physical Exam General Appearance: The patient is alert, has no immediate need for airway protection and no current signs of toxicity. Eyes: Pupils equal and round no injection. Mouth: Mouth pink and moist. No exudate noted in mouth. Respiratory: Chest is non tender. Lungs with diminished lung sounds throughout. Wheezing noted in upper lobes bilaterally. Cardiac: regular rate and rhythm Gastrointestinal: Reports LLQ pain with palpation. Abdomen is soft, no masses, bowel sounds normal. Musculoskeletal: Neck: Neck is supple and non tender. Extremities have full range of motion and are non tender. Skin: Hematoma surrounded with erythema present on posterior aspect of left hip. Warm to touch. DIFFERENTIAL DIAGNOSIS: After history and physical exam differential diagnosis w as considered for COPD exacerbation, pneumonia, heart failure, UTI. Medical Decision Making Data Points Result Diagram: 08/26/18 1400 08/26/18 1400 Laboratory Hematology Test 08/26/18 14:00 08/26/18 15:00 Red Blood Count 4.10 M/uL (4.17-5.56) Mean Corpuscular Volume 96.1 fL (80.0-96.0) Mean Corpuscular Hemoglobin 29.4 pg (26.0-33.0) Mean Corpuscular Hemoglobin Concent 30.6 g/dL (32.0-36.0) Red Cell Distribution Width 17.6 % (11.5-14.5) Mean Platelet Volume 7.4 fL (7.2-11.1) Neutrophils (%) (Auto) 49.2 % (39.4-72.5) Lymphocytes (%) (Auto) 31.9 % (17.6-49.6) Monocytes (%) (Auto) 14.1 % (4.1-12.4) Eosinophils (%) (Auto) 4.4 % (0.4-6.7) Basophils (%) (Auto) 0.4 % (0.3-1.4) Nucleated RBC Relative Count (auto) 0.0 /100WBC Neutrophils # (Auto) 2.7 K/uL (2.0-7.4) Lymphocytes # (Auto) 1.8 K/uL (1.3-3.6) Monocytes # (Auto) 0.8 K/uL (0.3-1.0) Eosinophils # (Auto) 0.2 K/uL (0.0-0.5) Basophils # (Auto) 0.0 K/uL (0.0-0.1) Nucleated RBC Absolute Count (auto) 0.00 K/uL Sodium Level 142 mmol/L (137-145) Potassium Level 3.6 mmol/L (3.5-5.0) Chloride Level 91 mmol/L (98-107) Carbon Dioxide Level 44 mmol/L (22-31) Blood Urea Nitrogen 17 mg/dl (7-18) Creatinine 0.70 mg/dl (0.52-1.04) Glomerular Filtration Rate Calc > 60.0 Random Glucose 92 mg/dl (75-110) Calcium Level 8.8 mg/dl (8.4-10.2) Total Bilirubin 0.1 mg/dl (0.2-1.3) Aspartate Amino Transf (AST/SGOT) 25 U/L (0-35) Alanine Aminotransferase (ALT/SGPT) 24 U/L (0-56) Alkaline Phosphatase 85 U/L (0-126) Troponin I < 0.012 ng/ml B-Type Natriuretic Peptide 21 pg/ml (0-100) Total Protein 6.9 g/dl (6.3-8.2) Albumin 3.8 g/dl (3.5-5.0) Urine Color Yellow Urine Clarity Clear Urine pH 6.0 pH (4.8-9.5) Urine Specific [place] 1.010 Urine Protein Negative mg/dL (NEGATIVE) Urine Glucose (UA) Negative mg/dL (NEGATIVE) Urine Ketones Negative mg/dL (NEGATIVE) Urine Blood Negative (NEGATIVE) Urine Nitrite Negative (NEGATIVE) Urine Bilirubin Negative (NEGATIVE) Urine Urobilinogen Negative mg/dL (0.2-1.9) Urine Leukocyte Esterase Trace (NEGATIVE) Urine RBC 6 /HPF (0-2/HPF) Urine WBC 5 /HPF (0-5/HPF) Urine Squamous Epithelial Cells Many /LPF (</=FEW) Urine Bacteria Few /HPF (NONE-FEW) Urine Mucus None /HPF (NONE-FEW) Chemistry Test 08/26/18 14:00 08/26/18 15:00 White Blood Count 5.5 k/uL (4.5-11.0) Red Blood Count 4.10 M/uL (4.17-5.56) Hemoglobin 12.1 g/dL (12.0-16.0) Hematocrit 39.4 % (34.0-47.0) Mean Corpuscular Volume 96.1 fL (80.0-96.0) Mean Corpuscular Hemoglobin 29.4 pg (26.0-33.0) Mean Corpuscular Hemoglobin Concent 30.6 g/dL (32.0-36.0) Red Cell Distribution Width 17.6 % (11.5-14.5) Platelet Count 267 K/uL (150-450) Mean Platelet Volume 7.4 fL (7.2-11.1) Neutrophils (%) (Auto) 49.2 % (39.4-72.5) Lymphocytes (%) (Auto) 31.9 % (17.6-49.6) Monocytes (%) (Auto) 14.1 % (4.1-12.4) Eosinophils (%) (Auto) 4.4 % (0.4-6.7) Basophils (%) (Auto) 0.4 % (0.3-1.4) Nucleated RBC Relative Count (auto) 0.0 /100WBC Neutrophils # (Auto) 2.7 K/uL (2.0-7.4) Lymphocytes # (Auto) 1.8 K/uL (1.3-3.6) Monocytes # (Auto) 0.8 K/uL (0.3-1.0) Eosinophils # (Auto) 0.2 K/uL (0.0-0.5) Basophils # (Auto) 0.0 K/uL (0.0-0.1) Nucleated RBC Absolute Count (auto) 0.00 K/uL Glomerular Filtration Rate Calc > 60.0 Calcium Level 8.8 mg/dl (8.4-10.2) Total Bilirubin 0.1 mg/dl (0.2-1.3) Aspartate Amino Transf (AST/SGOT) 25 U/L (0-35) Alanine Aminotransferase (ALT/SGPT) 24 U/L (0-56) Alkaline Phosphatase 85 U/L (0-126) Troponin I < 0.012 ng/ml B-Type Natriuretic Peptide 21 pg/ml (0-100) Total Protein 6.9 g/dl (6.3-8.2) Albumin 3.8 g/dl (3.5-5.0) Urine Color Yellow Urine Clarity Clear Urine pH 6.0 pH (4.8-9.5) Urine Specific [place] 1.010 Urine Protein Negative mg/dL (NEGATIVE) Urine Glucose (UA) Negative mg/dL (NEGATIVE) Urine Ketones Negative mg/dL (NEGATIVE) Urine Blood Negative (NEGATIVE) Urine Nitrite Negative (NEGATIVE) Urine Bilirubin Negative (NEGATIVE) Urine Urobilinogen Negative mg/dL (0.2-1.9) Urine Leukocyte Esterase Trace (NEGATIVE) Urine RBC 6 /HPF (0-2/HPF) Urine WBC 5 /HPF (0-5/HPF) Urine Squamous Epithelial Cells Many /LPF (</=FEW) Urine Bacteria Few /HPF (NONE-FEW) Urine Mucus None /HPF (NONE-FEW) Urinalysis Test 08/26/18 15:00 Urine Color Yellow Urine Clarity Clear Urine pH 6.0 pH (4.8-9.5) Urine Specific [place] 1.010 Urine Protein Negative mg/dL (NEGATIVE) Urine Glucose (UA) Negative mg/dL (NEGATIVE) Urine Ketones Negative mg/dL (NEGATIVE) Urine Blood Negative (NEGATIVE) Urine Nitrite Negative (NEGATIVE) Urine Bilirubin Negative (NEGATIVE) Urine Urobilinogen Negative mg/dL (0.2-1.9) Urine Leukocyte Esterase Trace (NEGATIVE) Urine RBC 6 /HPF (0-2/HPF) Urine WBC 5 /HPF (0-5/HPF) Urine Squamous Epithelial Cells Many /LPF (</=FEW) Urine Bacteria Few /HPF (NONE-FEW) Urine Mucus None /HPF (NONE-FEW) EKG/Imaging Imaging FINDINGS: Cardiomediastinal silhouette: Negative. Pulmonary vasculature: Atherosclerotic disease of the thoracic aortic arch. Lung silva: Hyperexpanded lung silva with background interstitial scarring. Pleural spaces: Negative. Osseous structures: Patient status post previous anterior interbody fusion of the lower cervical spine. Surrounding soft tissues: Negative. IMPRESSION: No evidence of acute cardiopulmonary disease. ED Course/Re-evaluation ED Course Upon arrival to the ED, patient admitted to an exam room, hx and physical obtained, differentials considered. Patient presents to the ED with stated shortness of breath and difficulty breathing. States she has a hx of COPD so she has difficulty breathing all of the time, but it has significantly worsened this morning. Reports she has not used her rescue inhaler today. Reports associated symptoms of chills, decreased appetite, nausea, and some dizziness. The dizziness and nausea have been present for quite sometime prior to today. No fever, no chest pain. Also reports to having a sore on her left hip. It has been present for over a week. It started out as a bruise, and has progressed to a hematoma that is painful. Lungs with diminished lung sounds throughout. Wheezing noted in upper lobes bilaterally. No edema in lower legs. Reports LLQ pain with palpation. Hematoma surrounded with erythema present on posterior aspect of left hip. Warm to touch. CBC, CMP, troponin, BNP, EKG, chest x-ray, UA ordered. IV started. 125mg IV solumedrol given. Duoneb administered. I&D of hematoma pe rformed. Numbed in the usual fashion. Small incision made to hematoma, drained of blood. Hematoma was very shallow, <0.5cm deep. Wound covered with 2x2, secured with tegederm. CBC and CMP unremarkable: WBC 5.5, monocytes 14.1, CO2 44 - consistant with COPD, BNP 21, troponin negative, and UA negative. Patient reports improved respiratory symptoms with the duoneb and solumedrol. Will send patient home with steroids and antibiotics. As well, patient would like something to treat thrush. Will prescribe oral nystatin. Patient is in agreement with plan of care. Decision to Disposition Date: Aug 26, 2018 Decision to Disposition Time: 16:00 Depart Departure Latest Vital Signs Vital Signs Date Time Temp Pulse Resp B/P (MAP) Pulse Ox O2 Delivery O2 Flow Rate FiO2 08/26/18 15:45 76 84 08/26/18 15:30 134/61 (85) 08/26/18 14:37 18 08/26/18 14:30 Nasal Cannula 6.0 08/26/18 13:45 97.6 Impression: Primary Impression: COPD with acute exacerbation Additional Impressions: Hip hematoma, left Thrush, oral Condition: Improved Disposition: HOME OR SELF-CARE Referrals: ALBERT SANCHEZ MD (PCP) New Scripts Ipratropium/Albuterol Sulfate (IPRAT-ALBUT 0.5-3(2.5) MG/3 ML) 3 Ml Ampul.neb 3 ML IH Q4-6H for shortness of breath, #20 VIAL Prov: SUKHWINDER BERMEO 08/26/18 Amoxicillin/Pot Clav 875-125 Mg Tab (AUGMENTIN 875-125 TABLET) 1 Each Tablet 1 TAB PO Q12H for 7 Days, #14 TAB Prov: SUKHWINDER BERMEO 08/26/18 Prednisone (PREDNISONE) 20 Mg Tablet 40 MG PO DAILY for 5 Days, #10 TAB Prov: SUKHWINDER BERMEO 08/26/18 Nystatin (Nystatin) 100,000 Unit/Ml Oral.susp 1 TSP PO 4 times a day, #140 ML Prov: SUKHWINDER BERMEO 08/26/18 Patient Instructions: COPD (Chronic Obstructive Pulmonary Disease) (ED) Additional Instructions: Please drink plenty water and get plenty of rest. Take antibiotics as prescirbed for 7 days. For the nystatin swish around your mouth and swallow. Take steroids once a day for 5 days. Please follow-up with Dr. sanchez by Sunday this week. Please return to the ED if you have chest pain, more difficulty breathing, fever, or for any other concerns. Problem Qualifiers Additional Impressions: Hip hematoma, left Encounter type: initial encounter Qualified Codes: S70.02XA - Contusion of left hip, initial encounter SUKHWINDER BERMEO Aug 26, 2018 13:53
[2018-08-26] MEDS ORDERED: methylPREDNIS SUCC 125 MG/2ML IVP ONE (14:20)
[2018-08-26] MEDS ORDERED: ALBUTEROL/IPRATROPIUM 3 ML NEB NEB ONE (14:20)
[2018-08-26 14:45] LABS: PLATELET COUNT, AUTOMATED 267 K/uL (150-450)
--- NOTE | 2018-08-26 15:04 | RADIOLOGY IMAGING REPORT ---
FACILITY: [facility] PATIENT NAME: Domitila Vera : 1940 MR: [id number] V: [id number] EXAM DATE: ORDERING PHYSICIAN: SUKHWINDER BERMEO TECHNOLOGIST: Location: [facility] Patient: Domitila Vera : 1940 Visit/Account:[id number] Date of Sevice: 08/26/2018 CHEST PA LAT COMPARISONS: Views of the chest dated November 20, 2017 ADDITIONAL PERTINENT HISTORY: Shortness of breath FINDINGS: Cardiomediastinal silhouette: Negative. Pulmonary vasculature: Atherosclerotic disease of the thoracic aortic arch. Lung silva: Hyperexpanded lung silva with background interstitial scarring. Pleural spaces: Negative. Osseous structures: Patient status post previous anterior interbody fusion of the lower cervical spi ne. Surrounding soft tissues: Negative. IMPRESSION: No evidence of acute cardiopulmonary disease. Report Dictated By: Stephan Valentin MD at 08/26/2018 2:58 PM Report E-Signed By: Stephan Valentin MD at 08/26/2018 2:59 PM WSN:[id number]
[2018-08-26 15:30] VITALS: BP 134/61
[2018-08-26] MEDS ORDERED: PRED20TA6 PO (15:54)
[2018-08-26] MEDS ORDERED: AMOX-559 PO (15:54)
[2018-08-26] MEDS ORDERED: NYST100016 PO (15:54)
[2018-08-26] MEDS ORDERED: IPRA3AMP10 IH (16:00)
--- NOTE | 2018-08-26 16:03 | EKG ---
FACILITY: [facility] PATIENT NAME: ALEKSANDR BARON : [id number] MR: [id number] V: [id number] EXAM DATE: ORDERING PHYSICIAN: SUKHWINDER BERMEO TECHNOLOGIST: TESSA Amezcua Reason : Blood Pressure : / mmHG Vent. Rate : 073 BPM Atrial Rate : 073 BPM P-R Int : 118 ms QRS Dur : 072 ms QT Int : 366 ms P-R-T Axes : 067 028 082 degrees QTc Int : 403 ms Sinus rhythm Interpretation difficult due to artifact in multiple leads - repeat if needed Confirmed by GALILEA LOWERY ([id number]) on 08/26/2018 8:18:33 PM Referred By: Confirmed By:GALILEA LOWERY
== END 2018-08-26 16:05 | disposition home or self-care (01) ==
LOC: ER 13:56
DX: J44.1 Chronic obstructive pulmonary disease with (acute) exacerbation (principal); S70.02XA Contusion of left hip, initial encounter; B37.0 Candidal stomatitis
CPT/HCPCS: 10060; 71046; 81001; 83880; 84484; 85025; 87070; 87073; 87205; 93005; 94640; 96374; 99284; J2930; J7620; 82040; 82247; 82310; 82374; 82435; 82565; 82947; 84075; 84132; 84155; 84295; 84450; 84460; 84520

== ENCOUNTER 2018-09-18 09:16 | Outpatient (RCR) | payer MEDICARE, BC ==
[2016-01-10 16:52] VITALS: Wt 64.8 kg
[2018-07-04 11:30] VITALS: BP 97/64
[2018-07-04 11:45] LABS: PLATELET COUNT, AUTOMATED 244 K/uL (150-450)
[2018-07-17 10:34] VITALS: BP 96/60
[2018-07-17 10:40] LABS: PLATELET COUNT, AUTOMATED 222 K/uL (150-450)
[2018-07-31 10:44] VITALS: BP 120/84
[2018-07-31 10:50] LABS: PLATELET COUNT, AUTOMATED 192 K/uL (150-450)
[2018-07-31] MEDS: DARBEPOETIN ESRD 100 MCG/0.5ML SYR IVP PRN (11:01)
[2018-08-14 10:31] LABS: PLATELET COUNT, AUTOMATED 248 K/uL (150-450)
[2018-08-14] MEDS: DARBEPOETIN ESRD 100 MCG/0.5ML SYR IVP PRN (10:50)
[2018-08-14 11:27] VITALS: BP 105/52
[2018-08-28 12:12] VITALS: BP 105/68
[2018-08-28 12:16] LABS: PLATELET COUNT, AUTOMATED 276 K/uL (150-450)
[~2018-09-18 09:16] MED LIST changes: +AMOX-559 PO; +NYST100016 PO; +OXYGENHOME INH
[2018-09-18 09:31] VITALS: BP 113/62
[2018-09-18 09:41] LABS: PLATELET COUNT, AUTOMATED 195 K/uL (150-450)
--- NOTE | 2018-09-20 07:47 | ONCOLOGY FOLLOW UP NOTE ---
EVENT DATE: September 18, 2018 CHIEF COMPLAINT Followup for anemia of chronic disease/suspected myelodysplasia. HISTORY OF PRESENT ILLNESS Patient is a 77-year old female who is seen today in followup. She has been receiving Aranesp on an every two week basis to maintain hemoglobin above 11.0. She is tolerating this without issue. She has longstanding chronic back and left hip pain, which is somewhat controlled on occasional nonsteroidal. She was seen in the emergency room on August 26, 2018, with an exacerbation of COPD. This resolved with Albuterol nebulizers and Augmentin. She will see her senior datastage developer in [facility] tomorrow but would like to transition to the Pulmonary Clinic here in [place]. Otherwise, she feels she is managing fairly well. HEMATOLOGY HISTORY Patient has been diagnosed with anemia of chronic disease as well as suspected myelodysplasia. Her hemoglobin has been maintained >11.0 with intermittent Aranesp. PAST MEDICAL HISTORY 1. Suspected myelodysplasia with chronic normocytic anemia. 2. COPD. 3. Hypertension. 4. Hyperlipidemia. 5. Type 2 diabetes. 6. Hypothyroidism. PAST SURGICAL HISTORY 1. DENISE, December 2015. 2. Left femur pinning for fracture, July 2013. 3. Total hip replacement x3. 4. History of neck fusion. 5. Bilateral shoulder repair. 6. History of minor back surgery. FAMILY HISTORY Son with head and neck cancer. SOCIAL HISTORY Patient is . They have five grown children. 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 She is a former smoker, having smoked a pack a day for 30 years but quit in 2012. She has no history of alcohol abuse or illegal drug use. MEDICATIONS 1. Ipratropium Albuterol inhaler. 2. Trazodone q.h.s. 3. Nonsteroidals p.r.n. 4. Guaifenesin p.r.n. 5. Carvedilol. 6. Baby aspirin. 7. Vitamin D3. 8. Levothyroxine. 9. Atorvastatin. 10. Albuterol inhaler. ALLERGIES No known drug allergies. REVIEW OF SYSTEMS A 12-point review of systems is performed and is negative except as stated above. PHYSICAL EXAMINATION VITAL SIGNS: Weight 143 pounds, BP 113/62, P 72, R 16, temperature 97.7, O2 sat 90% on 6L per nasal cannula. GENERAL: Patient is a well-developed, well-nourished female in no acute distress. She ambulates using a cane. HEAD: Normocephalic, atraumatic. EYES: Sclerae anicteric. MOUTH: Moist mucous membranes. No lesions. NECK: Supple. No palpable adenopathy. LUNGS: Significantly diminished bilaterally. No rhonchi or wheezes noted. CARDIOVASCULAR: Heart rate regular, 72 per minutes. EXTREMITIES: No edema. NEURO: Nonfocal. LABORATORY STUDIES CBC today reveals a WBC of 3.8, hemoglobin 11.1, hematocrit 34.8, platelets 195,000. IMPRESSION Patient is a 77-year old female with suspected myelodysplasia and chronic normocytic anemia. Hemoglobin has been maintained at 11.0 or above on Aranesp every two weeks. PLAN 1. Anemia of chronic disease/myelodysplasia. Patient will not require Aranesp today. She will continue with CBC and Aranesp on an every two week basis, which will be given for hemoglobin less than or equal to 11.0. 2. COPD. She was seen in the emergency room for an exacerbation of COPD. She has an appointment with her senior datastage developer in [facility] but this is a difficult trip for them. We will try to get her into the senior datastage developer here. She sees them on an every six month basis. 3. Pain. Chronic back and left hip pain. She manages this fairly well with nonsteroidals. 4. Follow up every two weeks with CBC and possible Aranesp. 5. Follow up in six months for continued care, earlier if there is a problem. BIBI
--- NOTE | 2018-09-23 13:04 | NUR ---
Faxed referral to [facility] in [place] for patient to have a follow up in [place] in 6 months.
== END 2018-09-30 ==
LOC: SPU 09:16
PROVIDERS: ATTEND Internal Medicine Medical Oncology
DX: D64.9 Anemia, unspecified (principal); B46.9 Zygomycosis, unspecified; J44.9 Chronic obstructive pulmonary disease, unspecified; M54.9 Dorsalgia, unspecified; M25.552 Pain in left hip
CPT/HCPCS: 36415; 85025; 96374; G0463; J0882; 99212

== ENCOUNTER 2018-10-11 01:04 | Day surgery (SDC) | payer MEDICARE, BC ==
[2016-01-10 16:52] VITALS: Ht 160 cm; Wt 64.9 kg
[~2018-10-11] VITALS: Ht 160 cm; Wt 64.9 kg
[~2018-10-11 01:04] MED LIST changes: +FLUT1BLS5 INH
[2018-10-11] MEDS ORDERED: OPHTHALMIC PROCEDURE 1 OD PRN (06:00)
[2018-10-11] MEDS ORDERED: acetaZOLAMIDE 500 MG CAPCR PO ONE (06:00)
[2018-10-11] MEDS ORDERED: OPHTHALMIC PROCEDURE 2 OD PRN ×2 (06:00)
[2018-10-11] MEDS ORDERED: LIDOCAINE/SOD BICARB 8.4% SYR ID ONE (14:00)
[2018-10-11] MEDS ORDERED: NORMOSOL R SOLN(*) 1000 ML BAG 1,000 ML IV PRN (14:00)
[2018-10-11 14:37] VITALS: BP 149/61
[2018-10-11 16:07] VITALS: BP 144/92
--- NOTE | 2018-10-12 08:45 | OPERATIVE REPORT 1 ---
EVENT DATE: October 11, 2018 SURGEON: Irvin Narayan MD ANESTHESIOLOGIST: Jan Curry MD ANESTHESIA: MAC. PREOPERATIVE DIAGNOSIS Cataract, right eye. POSTOPERATIVE DIAGNOSIS Cataract, right eye. PROCEDURE Phacoemulsification of cataractous lens with implantation of an intraocular lens, right eye. DESCRIPTION OF PROCEDURE The risks and benefits and alternatives were carefully discussed with the patient, and preoperative consent was obtained. The patient was brought to the operating room, after receiving topical anesthetic. The patient was prepped and draped using sterile technique in the usual manner. A stab incision was made and the chamber was inflated with preservative-free lidocaine. DuoVisc was injected to inflate the chamber. A 2.2 mm blade was used to enter the anterior chamber. Utrata forceps were used to tear a circular capsulorrhexis. BSS was used to hydrodissect the nucleus. Phaco tip was introduced and the nucleus was chopped into four quadrants. Each quadrant was removed. The I/A tip was used to remove the cortex. The bag was inflated with ProVisc. The intraocular lens was injected into the capsular bag. The I/A tip was used to remove the ProVisc. The wound was found to be watertight. Vigamox, Nevanac and Maxitrol ointment were placed in the patient's eye. The patient's eye was patched and the patient was taken to the recovery room in stable condition. The patient was examined in the recovery room and found to be stable, prior to release from the hospital. BIBI
== END 2018-10-11 16:26 | disposition home or self-care (01) ==
LOC: OR 01:04
PROVIDERS: ATTEND Ophthalmology
DX: H25.11 Age-related nuclear cataract, right eye (principal)
CPT/HCPCS: 66984; A9270; V2632

== ENCOUNTER 2018-10-26 17:59 | Emergency (ER) | payer MEDICARE, BC ==
[2016-01-10 16:52] VITALS: Wt 63.5 kg
--- NOTE | 2018-10-26 18:13 | ER Report ---
History and Physical Time Seen By MD: 18:10 Hx. of Stated Complaint: presents with tachypnea and SOB. States started feeling SOB this am. 6L o2 at home. Sats 92% RR30, afebrile HPI/ROS CHIEF COMPLAINT: Shortness of breath HISTORY OF PRESENT ILLNESS: This is a 77-year-old female. She's been having shortness of breath starting earlier this morning. Has been wheezing a little bit. She is on 6 L of oxygen at home chronically and has significant COPD. Has some tachypnea with this shortness of breath. She denies having any fevers. Does have a little bit of chest pain, worsens with breathing in the lower chest. Nonradiating. Shortness of breath and chest pain worsen with exertion. She denies any worsening or her chronic cough. She has no diarrhea, but has had a little bit of constipation recently, but no abdominal pain. She denies any trouble with urination. She has seen cardiology in the past, no recent problems. Saw Dr. Amor at [facility] in the past as well and was transferred last year for heart problem. No problems since then. Allergies: Coded Allergies: No Known Drug Allergies (Verified , 08/26/18) Home Meds Active Scripts Amoxicillin/Pot Clav 875-125 Mg Tab (AUGMENTIN 875-125 TABLET) 1 Each Tablet, 1 TAB PO Q12H for 7 Days, #14 TAB Prov:SUKHWINDER BERMEO [facility] [place] 08/26/18 Reported Medications Fluticasone/Umeclidin/Vilanter (Trelegy Ellipta 100-62.5-25) 100-62.5 Blst.w.dev, 1 PUFF INH QDAY 10/08/18 Oxygen (OXYGEN) Inha, 6 L INH QDAY, L 08/26/18 Montelukast Sodium (SINGULAIR) 10 Mg Tablet, 1 TAB PO QDAY, TAB 05/09/18 Furosemide (FUROSEMIDE) 40 Mg Tablet, 40 MG PO QODAY, TAB 05/09/18 Fluoxetine Hcl (FLUOXETINE HCL) 20 Mg Capsule, 40 MG PO QDAY, CAPSULE 05/09/18 Pantoprazole Sodium (PANTOPRAZOLE SODIUM) 40 Mg Tablet.dr, 40 MG PO QDAY PRN for REFLUX, TAB.SR 05/09/18 Naproxen Sodium (ALEVE) 220 Mg Capsule, 220 MG PO TID PRN for PAIN, CAPSULE 03/21/17 Carvedilol (CARVEDILOL) 3.125 Mg Tab, 3.125 MG PO BID, TAB 11/07/16 Aspirin (ASPIR 81) 81 Mg Tablet.dr, 81 MG PO QDAY, TAB 04/21/15 Levothyroxine Sodium (LEVOTHYROXINE SODIUM) 0.125 Mg Tab, 0.125 MG PO QDAY, TAB 06/02/14 Atorvastatin Calcium (ATORVASTATIN CALCIUM) 10 Mg Tablet, 1 TAB PO HS, TAB 06/02/14 Albuterol Sulfate (Albuterol Inh Conc) 2.5 Mg/0.5 Ml Nebu, 2 PUFF INH PRN, 0 Refills DILUTE BEFORE USING 09/11/10 Reviewed Nurses Notes: Yes Hx Smoking: Yes (1 PPD QUIT 2012) Smoking Status: Former Smoker Exposure to Second Hand Smoke?: Yes Hx Substance Use Disorder: No Hx Alcohol Use: No Constitutional Vital Sign - Last 24 Hours 10/26/18 10/26/18 10/26/18 10/26/18 18:05 18:05 18:20 18:30 Temp 98.4 Pulse 82 90 Resp 30 26 B/P (MAP) 184/95 167/107 (127) 157/87 (110) Pulse Ox 94 97 O2 Delivery Nasal Cannula O2 Flow Rate 6.0 10/26/18 10/26/18 10/26/18 10/26/18 18:41 18:41 18:46 18:50 Pulse 82 84 80 Resp 18 24 17 B/P (MAP) 157/87 (110) Pulse Ox 94 95 87 O2 Delivery Nasal Cannula Nasal Cannula O2 Flow Rate 6.0 10/26/18 10/26/18 10/26/18 10/26/18 18:52 18:52 19:00 19:20 Pulse 82 80 Resp 18 16 B/P (MAP) 150/93 (112) Pulse Ox 95 99 O2 Delivery Nasal Cannula O2 Flow Rate 6.0 10/26/18 10/26/18 10/26/18 10/26/18 19:27 19:27 19:30 19:37 Pulse 78 Resp 18 B/P (MAP) 136/67 (90) Pulse Ox 95 95 O2 Delivery Nasal Cannula Nasal Cannula O2 Flow Rate 6.0 6.0 10/26/18 10/26/18 10/26/1810/26/19 19:37 19:50 19:55 20:00 Pulse 80 81 82 Resp 18 21 22 B/P (MAP) ???/??? (1665) Pulse Ox 100 99 10/26/18 10/26/18 10/26/18 10/26/18 20:25 20:30 20:55 21:00 Pulse 86 89 Resp 13 19 B/P (MAP) 110/84 (93) 153/76 (101) Pulse Ox 98 100 10/26/18 10/26/18 10/26/18 10/26/18 21:05 21:30 21:35 21:40 Pulse 87 86 91 Resp 19 18 19 B/P (MAP) 143/62 (89) Pulse Ox 93 99 99 10/26/18 10/26/18 10/26/18 10/26/18 22:00 22:10 22:15 22:30 Pulse 94 93 Resp 18 18 B/P (MAP) 150/78 (102) 67/38 (48) Pulse Ox 98 97 10/26/18 10/26/18 10/26/18 22:45 22:48 23:00 Pulse 97 Resp 33 B/P (MAP) 144/76 (98) 136/75 (95) Pulse Ox 94 Intake and Output 10/26/18 10/26/18 10/27/18 15:03 23:03 07:03 Intake Total 5 ml Balance 5 ml Physical Exam General Appearance: The patient is alert. No acute distress. Non-toxic in appearance. Eyes: Pupils are equal, round. No pallor, injection or icterus. ENT: Mucous membranes are moist. Normal oral mucosa. Posterior oropharynx is normal. Neck: Supple and non tender. Respiratory: Lungs are clear to auscultation. Cardiovascular: Regular rate and rhythm. No murmurs, gallops or rubs. Normal capillary refill. No edema. Gastrointestinal: Abdomen is soft and non tender. Nondistended. Normal active bowel sounds. No costovertebral angle tenderness with percussion. Neurological: Alert and oriented x3. No focal neurologic deficits Skin: Warm and dry. No rashes. Musculoskeletal: Extremities are nontender. No tenderness in palpation of the cervical, thoracic and lumbar spine. DIFFERENTIAL DIAGNOSIS: After history and physical exam, differential diagnosis was considered for shortness of breath including but not limited to pulmonary infectious process, COPD, asthma, pulmonary embolus and congestive heart failure. Medical Decision Making Data Points Result Diagram: 10/26/18 1803 10/26/18 1803 Laboratory Hematology Test 10/26/18 18:03 White Blood Count 5.2 k/uL (4.5-11.0) Red Blood Count 3.67 M/uL (4.17-5.56) L Hemoglobin 11.1 g/dL (12.0-16.0) L Hematocrit 35.1 % (34.0-47.0) Mean Corpuscular Volume 95.8 fL (80.0-96.0) Mean Corpuscular Hemoglobin 30.3 pg (26.0-33.0) Mean Corpuscular Hemoglobin Concent 31.6 g/dL (32.0-36.0) L Red Cell Distribution Width 16.3 % (11.5-14.5) H Platelet Count 271 K/uL (150-450) Mean Platelet Volume 7.7 fL (7.2-11.1) Neutrophils (%) (Auto) 48.9 % (39.4-72.5) Lymphocytes (%) (Auto) 30.9 % (17.6-49.6) Monocytes (%) (Auto) 16.7 % (4.1-12.4) H Eosinophils (%) (Auto) 3.2 % (0.4-6.7) Basophils (%) (Auto) 0.3 % (0.3-1.4) Nucleated RBC Relative Count (auto) 0.1 /100WBC Neutrophils # (Auto) 2.6 K/uL (2.0-7.4) Lymphocytes # (Auto) 1.6 K/uL (1.3-3.6) Monocytes # (Auto) 0.9 K/uL (0.3-1.0) Eosinophils # (Auto) 0.2 K/uL (0.0-0.5) Basophils # (Auto) 0.0 K/uL (0.0-0.1) Nucleated RBC Absolute Count (auto) 0.00 K/uL Chemistry Test 10/26/18 18:03 10/26/18 20:58 Sodium Level 139 mmol/L (137-145) Potassium Level 3.8 mmol/L (3.5-5.0) Chloride Level 92 mmol/L (98-107) Carbon Dioxide Level 40 mmol/L (22-31) Blood Urea Nitrogen 7 mg/dl (7-18) Creatinine 0.70 mg/dl (0.52-1.04) Glomerular Filtration Rate Calc > 60.0 Random Glucose 97 mg/dl (75-110) Calcium Level 9.1 mg/dl (8.4-10.2) Total Bilirubin 0.3 mg/dl (0.2-1.3) Aspartate Amino Transf (AST/SGOT) 37 U/L (0-35) Alanine Aminotransferase (ALT/SGPT) 38 U/L (0-56) Alkaline Phosphatase 102 U/L (0-126) Total Protein 6.9 g/dl (6.3-8.2) Albumin 3.7 g/dl (3.5-5.0) Troponin I 1.610 ng/ml Urinalysis Test 10/26/18 18:24 Urine Color Straw Urine Clarity Clear Urine pH 7.0 pH (4.8-9.5) Urine Specific [place] 1.003 Urine Protein Negative mg/dL (NEGATIVE) Urine Glucose (UA) Negative mg/dL (NEGATIVE) Urine Ketones Negative mg/dL (NEGATIVE) Urine Blood Small (NEGATIVE) Urine Nitrite Negative (NEGATIVE) Urine Bilirubin Negative (NEGATIVE) Urine Urobilinogen Negative mg/dL (0.2-1.9) Urine Leukocyte Esterase Negative (NEGATIVE) Urine RBC 2 /HPF (0-2/HPF) Urine WBC 1 /HPF (0-5/HPF) Urine Squamous Epithelial Cells Few /LPF (</=FEW) Urine Bacteria Negative /HPF (NONE-FEW) Urine Mucus None /HPF (NONE-FEW) EKG/Imaging EKG Interpretation 12 lead EKG: Rhythm: Normal sinus rhythm, rate 79 [place]: normal QRS: Low-voltage ST segments: No signs of ischemia 12 lead EKG: Repeat after 3 hours Unchanged Imaging Abdominal series with single view of the chest: 10/26/2018 6:29 PM HISTORY: Shortness of breath. Abdominal pain. COMPARISON: 12/19/2012. FINDINGS: Some stool seen throughout colon. Bowel gas pattern is nonobstructed and nondilated. Abdominal soft tissues grossly normal without suspicious lucencies or abnormal calcifications. Postsurgical changes to the left hip including arthroplasty without sequelae. Degenerative change seen in the spine. Functional consolidation, pleural effusion or pneumothorax. No discrete nodule. Cardiomediastinal silhouette and pulmonary vessels within normal limits. No acute bony abnormality. Postsurgical change the lower cervical spine without sequelae. Surgical anchor seen in the right humeral head. IMPRESSION: 1. Unremarkable exam of the abdomen. 2. No acute cardiopulmonary process. Report Dictated By: Juan Avelar at 10/26/2018 8:21 PM ED Course/Re-evaluation Clinical Indication for ER IV: Hydration, IV Access ED Course Initial evaluation with a breathing treatment, which significantly helped her breathing. Still extremely short of breath with exertion. Labs show normal EKG, but with elevated troponin in the indeterminate range. This is abnormal for her as usually her troponin is undetectable. Different pattern for her shortness of breath. Second breathing treatment given. Imaging negative. Aspirin daily and given further here. Repeat troponin was elevated into the critical range, doubled in 3 hours. Discussed with patient, then discussed with Dr. La, hospitalist at [facility], who accepted the patient for transfer. Heparin bolus and drip ordered. Decision to Disposition Date: Oct 26, 2018 Decision to Disposition Time: 22:23 Transfer Facility Patient was transferred to [facility] via ambulance. The transfer was emergent, and was required because the capabilities of the receiving hospital. Consent for transfer was obtained from the patient and her . See EMTALA for transfer orders. Depart Departure Latest Vital Signs Vital Signs Date Time Temp Pulse Resp B/P (MAP) Pulse Ox O2 Delivery O2 Flow Rate FiO2 10/26/18 23:00 136/75 (95) 10/26/18 22:45 97 33 94 10/26/18 19:37 Nasal Cannula 6.0 10/26/18 18:05 98.4 Impression: Primary Impression: NSTEMI (non-ST elevated myocardial infarction) Condition: Condition Unchanged Disposition: XFER TO [facility] Referrals: ALBERT SANCHEZ MD (PCP) SINA MCCANN MD Oct 26, 2018 18:13
[2018-10-26] MEDS ORDERED: ALBUTEROL/IPRATROPIUM 3 ML NEB NEB ONE (18:30)
[2018-10-26] MEDS ORDERED: methylPREDNIS SUCC 125 MG/2ML IVP ONE (18:30)
[2018-10-26 18:37] LABS: PLATELET COUNT, AUTOMATED 271 K/uL (150-450)
--- NOTE | 2018-10-26 18:38 | EKG ---
FACILITY: [facility] - [place] PATIENT NAME: ALEKSANDR BARON : [id number] MR: [id number] V: [id number] EXAM DATE: ORDERING PHYSICIAN: SINA MCCANN TECHNOLOGIST: Test Reason : Blood Pressure : / mmHG Vent. Rate : 079 BPM Atrial Rate : 079 BPM P-R Int : 144 ms QRS Dur : 078 ms QT Int : 362 ms P-R-T Axes : 082 015 064 degrees QTc Int : 415 ms Sinus rhythm Borderline left axis Decreased R wave progression anteriorly Nonspecific ST findings inferolaterally Borderline ECG Confirmed by GALILEA LOWERY ([id number]) on 10/27/2018 6:49:07 AM Referred By: Confirmed By:GALILEA LOWERY
[2018-10-26] MEDS ORDERED: ALBUTEROL 2.5 MG/3 ML NEB NEB ONE (19:20)
--- NOTE | 2018-10-26 20:32 | RADIOLOGY IMAGING REPORT ---
FACILITY: [facility] PATIENT NAME: Domitila Vera : 1940 MR: [id number] V: [id number] EXAM DATE: ORDERING PHYSICIAN: SINA MCCANN TECHNOLOGIST: Location: [facility] Patient: Domitila Vera : 1940 Visit/Account:[id number] Date of Sevice: 10/26/2018 Abdominal series with single view of the chest: 10/26/2018 6:29 PM HISTORY: Shortness of breath. Abdominal pain. COMPARISON: 12/19/2012. FINDINGS: Some stool seen throughout colon. Bowel gas pattern is nonobstructed and nondilated. Abdom inal soft tissues grossly normal without suspicious lucencies or abnormal calcifications. Postsurgica l changes to the left hip including arthroplasty without sequelae. Degenerative change seen in the sp ine. Functional consolidation, pleural effusion or pneumothorax. No discrete nodule. Cardiomediastinal si lhouette and pulmonary vessels within normal limits. No acute bony abnormality. Postsurgical change t he lower cervical spine without sequelae. Surgical anchor seen in the right humeral head. IMPRESSION: 1. Unremarkable exam of the abdomen. 2. No acute cardiopulmonary process. Report Dictated By: Juan Avelar at 10/26/2018 8:21 PM Report E-Signed By: Juan Avelar at 10/26/2018 8:25 PM WSN:[id number]
--- NOTE | 2018-10-26 21:31 | EKG ---
[place] [facility] [place] ALEKSANDR BARON : [id number] MR: [id number] V: [id number] EXAM DATE: ORDERING PHYSICIAN: SINA MCCANN TECHNOLOGIST: SONG Test Reason : CP, SOB Blood Pressure : / mmHG Vent. Rate : 087 BPM Atrial Rate : 087 BPM P-R Int : 142 ms QRS Dur : 076 ms QT Int : 372 ms P-R-T Axes : 073 -12 072 degrees QTc Int : 447 ms Sinus rhythm Probable left atrial enlargement Left axis Poor R wave progression anteriorly Borderline ECG No previous ECGs available Confirmed by GALILEA LOWERY ([id number]) on 10/27/2018 6:52:32 AM Referred By: Confirmed By:GALILEA LOWERY
[2018-10-26] MEDS ORDERED: ASPIRIN 81 MG CHEW PO ONE (22:30)
[2018-10-26] MEDS ORDERED: HEPARIN (PORC) 5000 UN/ML VIAL IVP ONE (22:30)
[2018-10-26] MEDS ORDERED: [UNRECOGNIZED DRUG - OTHER] IV ONE (22:35)
[2018-10-26 23:00] VITALS: BP 136/75
== END 2018-10-26 23:20 | disposition short-term general hospital (02) ==
LOC: ER 18:18
DX: I21.4 Non-ST elevation (NSTEMI) myocardial infarction (principal)
CPT/HCPCS: 74022; 81001; 84484; 85025; 93005; 94640; 96361; 96374; 99285; A9270; J1644; J2930; J7613; J7620; 82040; 82247; 82310; 82374; 82435; 82565; 82947; 84075; 84132; 84155; 84295; 84450; 84460; 84520

== ENCOUNTER → 2018-10-26 | Outpatient (CLI) | payer MEDICARE, BC ==
[2016-01-10 16:52] VITALS: BMI 25.4
== END ==
LOC: AMB 23:09
PROVIDERS: ATTEND Nurse Practitioner
DX: I21.4 Non-ST elevation (NSTEMI) myocardial infarction (principal); M25.552 Pain in left hip
CPT/HCPCS: A0425; A0426; A0888